=== PATIENT | male | born 1965 | race Caucasian/White ===

== ENCOUNTER 2017-01-01 16:26 | Inpatient (IN) | payer MEDICARE, OTHER ==
[~2017-01-01] VITALS: Ht 177.8 cm; Wt 73.0 kg
[~2017-01-01 16:26] MED LIST: FLUO20CA25 PO; LORA2TAB PO; OXYC10TA8 PO; OXYC30TA80 PO; ROPI3TAB PO; SIMV80TA4 PO; ZOLP10TA5 PO
--- NOTE | 2017-01-01 16:34 | ED.REPORT ---
HPI-Extremity Problem Upper Date of Service Jan 01, 2017 ED Provider: Brady Colbert DO Nursing Notes Stated Complaint: FELL,SHARP PAIN LEFT ARM Allergies: Coded Allergies: No Known Allergies (Unverified , 01/10/16) Scheduled Fluoxetine (Fluoxetine) 20 Mg Capsule 60 MG PO DAILY Ropinirole (Ropinirole) 3 Mg Tablet 6 MG PO HS Simvastatin (Simvastatin) 80 Mg Tablet 40 MG PO DAILY Zolpidem (Zolpidem) 10 Mg Tablet 10 MG PO HS oxyCODONE (oxyCODONE) 30 Mg Tablet 30 MG PO q4 hours Scheduled PRN Lorazepam (Lorazepam) 2 Mg Tablet 2 MG PO TID PRN PRN For Anxiety oxyCODONE (oxyCODONE) 10 Mg Tablet 20 MG PO q4-6hrs PRN PRN For Pain General Time Seen by MD: 16:34 Past Medical History Past Medical History History of back pain Past Surgical History EGD 04/05/04 Smoking History Current Every Day Smoker Social History Alcohol Use: Denies alcohol use Drug Use: Denies drug use Ambulatory Status Independent Discharge & Departure Referrals: Khris Hussein MD (PCP) Brady Colbert DO Jan 01, 2017 16:34
[2017-01-01 16:35] VITALS: BP 136/83; PULSE 99; RESP 20; O2SAT 100
--- NOTE | 2017-01-01 16:48 | ED.REPORT ---
HPI-Extremity Problem Upper Date of Service Jan 01, 2017 ED Provider: Kristi Todd History of Present Illness: 51-year-old male here for left wrist pain. He fell a few days ago landing on his right side and thought the brunt of the impact went onto his right hand and right hip and has been moderately painful but today he was driving in his left wrist started hurting. This pain is severe. Any sort of movement or palpation of the causes great pain. Denies fever, chills, nausea or vomiting. He recently injected drugs into area of pain on L wrist Nursing Notes Stated Complaint: FELL,SHARP PAIN LEFT ARM Chief Complaint: Extremity Trauma Nursing Notes Reviewed: Yes Allergies: Coded Allergies: No Known Allergies (Unverified , 01/10/16) Scheduled Fluoxetine (Fluoxetine) 20 Mg Capsule 60 MG PO DAILY Ropinirole (Ropinirole) 3 Mg Tablet 6 MG PO HS Simvastatin (Simvastatin) 80 Mg Tablet 40 MG PO DAILY Zolpidem (Zolpidem) 10 Mg Tablet 10 MG PO HS oxyCODONE (oxyCODONE) 30 Mg Tablet 30 MG PO q4 hours Scheduled PRN Lorazepam (Lorazepam) 2 Mg Tablet 2 MG PO TID PRN PRN For Anxiety oxyCODONE (oxyCODONE) 10 Mg Tablet 20 MG PO q4-6hrs PRN PRN For Pain General Time Seen by MD: 16:34 Chief Complaint Wrist injury left, Hand injury right Hx Obtained From: Patient Arrived By: Walk-in Onset Occurred: Just prior to arrival Symptom Duration: Constant Location: : Hand right: Wrist left Severity: Current: Severe Severity: Maximum: Severe Associated with: Denies: Fever Pertinent Negative: Pt denies other symptoms Exacerbated by: Range of motion Relieved by: Rest Similar Sx Previous: No Past Medical History Past Medical History Notes: recent iv drug use Past Medical History History of back pain Past Surgical History EGD 04/05/04 Smoking History Current Every Day Smoker Social History Alcohol Use: Denies alcohol use Drug Use: Denies drug use Ambulatory Status Independent Review of Systems Basic Review of Systems Eyes: Vision NL, No discharge ENT: Hearing NL, No pain, No nasal congestion, No pharyngeal pain Respiratory: No shortness of breath, No cough, No wheeze Cardiovascular: No chest pain, No dyspnea on exertion, No orthopnea, No parox noct dyspnea, No palpitations GI: No abdominal pain, No anorexia, No nausea, No vomiting : No dysuria, No frequency Hematologic: No bleeding, No bruising Allergy / Immune: No allergy Psychiatric: Normal thought content Constitutional: Denies: Fatigue Musculoskeletal: Reports: Extremity pain, Extremity swelling Complete sys rev & neg: except as marked. Physical Exam Initial Vital Signs Vital Signs (First) Date Time Temp Pulse Resp B/P Pulse Ox O2 Delivery O2 Flow Rate FiO2 01/01/17 16:35 36.6 99 20 136/83 100 01/01/17 20:43 Room Air Initial VS: Reviewed General/Constitutional: Well-developed, Well-nourished Head / Eyes: Atraumatic, Normocephalic, PERRL Neck: Supple, Non-tender, Full range of motion Respiratory: Breath sounds normal, Clear to auscultation, No respiratory distress Cardiovascular: Regular rate & rhythm, Heart sounds normal, Intact distal pulses Abdomen / GI: Soft, Non-tender, No guarding, No rebound, No distention Skin: Warm, Dry, No cyanosis Neurologic: Alert, Oriented, Nonfocal Psychiatric: Mood/affect normal, Behavior normal, Normal thought content Left Wrist: Positive: ROM reduced, Tender snuffbox..., Tenderness present... ( Severe) Right Hand: Positive: Erythema present, Swelling present... (Moderate), Tenderness present... (Moderate), Warmth present, Negative: ROM reduced multiple abrasians to R hand, some with purulence. R hand swollen. red streak spreading proximally from hand midway up forearm L wrist with a extremely tender area around his anatomical snuffbox. no obvious abscess.no obvious abnormality. just proximal to tender area is a nontender palpable vein. Pain and limitation of supination/pronation, flex/extention Skin: Warm, Dry, Turgor NL Color / Condition: Positive: Erythema localized (r hand/wrist) Rash / Lesion Location: Positive: Hand R, Wrist L Abdomen: Atraumatic, Soft, Non-tender, No guarding, No rebound, No hernia Interpretation & Diagnostics Interpretation & Diagnostics: PROCEDURE: X-RAY RIGHT HAND, MINIMUM THREE VIEWS ([id number]) INDICATIONS: pain TECHNIQUE: 3 views of the hand(s) acquired. COMPARISON: None. FINDINGS: Bones: There is cortical lucency in triquetrum suspicious for fracture. Carpal bones are normally aligned. No suspicious bony lesions. Soft tissues: No suspicious soft tissue calcifications. IMPRESSION: Possible triquetral fracture. Recommend a repeat examination in 7-10 days. of Service: 01/01/17 [id number] PROCEDURE: X-RAY LEFT WRIST COMPLETE, MINIMUM THREE VIEWS ([id number]) INDICATIONS: pain TECHNIQUE: 4 views of the wrist were acquired. COMPARISON: None. FINDINGS: Bones: No definitive fractures or dislocations. There is a linear ridge in the distal radius No suspicious bony lesions. There is ulnar negative variant. Scaphoid view: Scaphoid appears intact. Soft tissues: No suspicious soft tissue calcifications. IMPRESSION: 1. No definite fractures. 2. A linear ridge in the distal radius. If clinical symptoms persist, a repeat examination in 7-10 days, or advanced imaging such as CT or MRI is suggested for further evaluation. 3. Ulnar negative variant. IMPRESSION: 1. Severely limited examination due to motion artifacts. 2. Diffuse soft tissue swelli Lab Results Interpretation Result Diagram: 01/01/17 1710 01/01/17 1710 Test 01/01/17 17:10 White Blood Count 15.5th/mm3 (3.8-10.1) Red Blood Count 3.90mil/mm3 (4.40-5.80) Hemoglobin 10.9g/dL (13.8-17.2) Hematocrit 35.4% (41.0-50.0) Mean Corpuscular Volume 90.8fL (81-100) Mean Corpuscular Hemoglobin 27.9pg (27.0-35.0) Mean Corpuscular Hemoglobin Concent 30.8% (32.0-37.0) Red Cell Distribution Width 15.0% (12.3-15.4) Platelet Count 329bil/L (150-400) Neutrophils (%) (Auto) 76.5% (40-74) Lymphocytes (%) (Auto) 12.6% (14-46) Monocytes (%) (Auto) 9.6% (4-12) Eosinophils (%) (Auto) 1.0% (0-5) Basophils (%) (Auto) 0.1% (0-3) Erythrocyte Sedimentation Rate 23mm/hr (0-30) Sodium Level 134mEq/L (134-144) Potassium Level 4.8mEq/L (3.5-5.2) Chloride Level 97mEq/L (97-108) Carbon Dioxide Level 22mmol/L (18-29) Blood Urea Nitrogen 26mg/dL (6-24) Creatinine 0.88mg/dL (0.76-1.27) Estimat Glomerular Filtration Rate 96mL/min (>59) Glucose Level 111mg/dL (60-99) Lactic Acid Level 0.7mmol/L (0.4-2.0) Calcium Level 9.1mg/dL (8.5-10.1) Magnesium Level 2.1mg/dL (1.6-2.6) Total Bilirubin 0.2mg/dL (0.0-1.2) Aspartate Amino Transf (AST/SGOT) 15U/L (0-50) Alanine Aminotransferase (ALT/SGPT) 11U/L (0-44) Alkaline Phosphatase 96U/L (25-150) C-Reactive Protein 1.6mg/dL (0.0-0.5) Total Protein 7.0g/dL (6.4-8.4) Albumin 3.5g/dL (3.4-5.0) Re-Eval/Medical Decision Med Decision/Clinical Course Patient still has exquisite pain in the ulnar aspect of his left wrist pain with even the lightest touch and with any sort of movement. CT scan ordered Dr murdock at bedside for exam, care transfered. will admit pt. discussed admission with pt, he agrees to stay. Discharge & Departure Shift Change Sign-Out Laboratory Evaluation: Lab evaluation discussed Imaging Studies: Imaging discussed Procedures: Results discussed Impression: Primary Impression: Joint infection of left wrist Disposition: ADMITTED TO HOSPITAL Referrals: Khris Hussein MD (PCP) EDSupervising Provider for APC: Ace Murdock MD copies to: Ace Murdock MD, Linnea K ARNP Jan 01, 2017 16:48
--- NOTE | 2017-01-01 17:18 | DRSVH ---
PROCEDURE: X-RAY RIGHT HAND, MINIMUM THREE VIEWS ([id number]) INDICATIONS: pain TECHNIQUE: 3 views of the hand(s) acquired. COMPARISON: None. FINDINGS: Bones: There is cortical lucency in triquetrum suspicious for fracture. Carpal bones are normally al igned. No suspicious bony lesions. Soft tissues: No suspicious soft tissue calcifications. IMPRESSION: Possible triquetral fracture. Recommend a repeat examination in 7-10 days. Dictated by: Chandana Munoz M.D. on 01/01/2017 at 17:14 Approved by: Chandana Munoz M.D. on 01/01/2017 at 17:16
[2017-01-01] MEDS ORDERED: 0.9% Sodium Chloride 1,000 ML IV ONE (17:20)
--- NOTE | 2017-01-01 17:22 | DRSVH ---
PROCEDURE: X-RAY LEFT WRIST COMPLETE, MINIMUM THREE VIEWS ([id number]) INDICATIONS: pain TECHNIQUE: 4 views of the wrist were acquired. COMPARISON: None. FINDINGS: Bones: No definitive fractures or dislocations. There is a linear ridge in the distal radius No leena picious bony lesions. There is ulnar negative variant. Scaphoid view: Scaphoid appears intact. Soft tissues: No suspicious soft tissue calcifications. IMPRESSION: 1. No definite fractures. 2. A linear ridge in the distal radius. If clinical symptoms persist, a repeat examination in 7-10 da ys, or advanced imaging such as CT or MRI is suggested for further evaluation. 3. Ulnar negative variant. Dictated by: Chandana Munoz M.D. on 01/01/2017 at 17:18 Approved by: Chandana Munoz M.D. on 01/01/2017 at 17:20
[2017-01-01 17:23] LABS: BASOPHILS % (AUTO) 0.1 % (0-3); MONOCYTES % (AUTO) 9.6 % (4-12); Mean Corpuscular Hemoglobin 27.9 pg (27.0-35.0); Mean Corpuscular Volume 90.8 fL (81-100); NEUTROPHILS % (AUTO) 76.5 % (40-74); Platelet Count 329 bil/L (150-400)
[2017-01-01 17:50] LABS: Magnesium 2.1 mg/dL (1.6-2.6)
--- NOTE | 2017-01-01 20:26 | DRSVH ---
PROCEDURE: CT WRIST LEFT WITH CONTRAST ([id number]) INDICATIONS: Right hand pain. TECHNIQUE: After the administration of intravenous contrast, 3 mm axial sections acquired of the right hand, wit h coronal and sagittal reformats. For radiation dose reduction, the following was used: automated e xposure control, adjustment of mA and/or kV according to patient size. COMPARISON: [facility], CR, XR WRIST 3VW LT, 01/01/2017, 16:47. FINDINGS: Image quality: Severely limited examination due to motion artifacts. Bones: Cannot rule out subtle fractures because of motion artifacts. Soft tissues: Diffuse soft tissue swelling. IMPRESSION: 1. Severely limited examination due to motion artifacts. 2. Diffuse soft tissue swelling. Dictated by: Chandana Munoz M.D. on 01/01/2017 at 20:20 Approved by: Chandana Munoz M.D. on 01/01/2017 at 20:24
[2017-01-01 20:43] VITALS: BP 134/96; PULSE 62; RESP 16; O2SAT 98
[2017-01-01] MEDS ORDERED: Piperacillin-Tazo 3.375 Gm Inj 3.375 GM in Dextrose 5% Minibag Plus 50 ML IV ONE (20:55)
[2017-01-01] MEDS ORDERED: Vancomycin Dose per Pharmacist XX ONE (20:55)
[2017-01-01] MEDS ORDERED: Vancomycin Inj 1,500 MG in 0.9% Sodium Chloride 500 ML IV ONE (21:00)
[2017-01-01] MEDS ORDERED: Alum-Mag Hydrox-Simeth 30 mL Suspension PO PRN (21:45)
[2017-01-01] MEDS ORDERED: Polyethylene Glycol (PEG) 17 Gm Powder PO PRN (21:45)
[2017-01-01] MEDS ORDERED: Ondansetron 2 mg/mL 2 mL Inj IVPUSH PRN (21:45)
--- NOTE | 2017-01-01 21:58 | PCM.HPMED ---
Subjective Date of Service Jan 01, 2017 Primary Provider: Admitting Physician: Evan Reynaga MD Primary Care Physician: Khris Hussein MD Attending Physician: Evan Reynaga MD Admit Status: From the Emergency Department Chief Complaint: Left wrist pain History of Present Illness: Mr. Fitzgerald is a 51 year old gentleman with history of heroin IVDU and recent GLF, that presented to [facility] with acute onset of left wrist pain. He was admitted for evaluation and treatment of suspected left wrist infection secondary to recent IVDU. Hospital day one. Mr. Fitzgerald states that his left wrist became painful earlier in the day of admission, 01/01/2017, while he was driving. He states that he noted the increase in pain while he was driving his vehicle, and he attributed it to compensation for his right wrist injury that occurred approximately two days prior. His left wrist is notably tender, but non-erythematous, with pain elicited during wrist extension, abduction, and adduction; not much pain with flexion. He admits to most recent IVDU injection day of admission, and notes to inject around area of concern. He states that he has had a particularly difficult time since the passing of his months ago. He denies any associated fever, chills, nausea, vomiting, decreased appetite, diarrhea, constipation, abdominal pain, or pain of any other joints other than the phalangeal joints of his right hand secondary to a GLF approx two days ago. He states that he does not recall many details of this fall, and cannot clearly state the inciting factors. He cannot conclude if he blacked out, was dizzy and fainted, or any details. He vaguely remembers pulling himself up off the floor. He denies any pain of his bilateral hips, shoulders, elbows; denies pain of his right wrist. In the ED, vitals stable with temp 36.6, P62, BP 134/96, 98% RA; initial labs revealed WBC 15.5 with 76.5 neut, ESR 23, CRP 1.6; blood cultures obtained. Imaging included left wrist XR that revealed a linear ridge in distal radius; right hand XR revealed possible triquetral fracture; left wrist CT revealed soft tissue swelling, but was limited to motion artifact. CT brain was ordered to evaluate for stroke secondary to reports of recent GLF without known inciting factor, ordered at time of admission, and final report not yet completed. Initial therapy included vancomycin and zosyn. Review of Systems: Complete ROS obtained; pertinent positives and negatives as noted in HPI. Allergies Coded Allergies: No Known Allergies (Unverified , 01/10/16) Home Medications Patient reports no medications are taken on a daily basis; last seen by PCP > 1 year ago Patient reports distant history of cholesterol medications PMH Current IVDU, heroin Recent GLF secondary to unknown causes at time of admission Chronic back pain Reports history of elevated cholesterol Reports depression since loss of Possible HCV; distant [facility] notes from 2004 indicate a liver Bx was performed for HCV Denies any history of previous septic joints, painful joints, or history of similar events Surgical History Denies any surgical procedures Chart review: EGD 2003 Family History Denied any family history of similar; does not report any known details Social History Hx Alcohol Use: No Hx Substance Use: Yes (IV heroin; last used day of admission) Smoking Status: Current Every Day Smoker (Reports: 1ppd) Living Arrangement: Alone (Reports he lives in his home in [facility]) Exam Vital Signs Vital Sign - Last Date Time Temp Pulse Resp B/P Pulse Ox O2 Delivery O2 Flow Rate FiO2 01/01/17 20:43 62 16 134/96 98 Room Air 01/01/17 16:35 36.6 Exam General: AAOx3; no acute distress; frail, appears older than stated age HEENT: Atraumatic, sclera anicteric, EOMI, external ears without defect; mucus membranes moist Neck: Soft, no palpable lymph nodes; full ROM without pain Cardiac: RRR, no appreciated murmurs Respiratory: Adequate air flow all holm, no coarse sounds appreciated Abdomen: Soft, nontender, nondistended Extremities: Bilateral lower extremities without swelling of joints or impairments in ROM; left wrist non-erythematous, tender to palpation and with extension/abduction/adduction at wrist; right wrist noted to be mildly swollen with multiple sites of puncture/abrasion over right phalanges MSK: Able to ambulate and transfer without assistance Neuro: CNII-XII grossly intact; speech without slur; facial expressions equal and symmetric Psych: Appropriate mood, affect, and responses to questioning; minimal insight and judgment based on history of IVDU Patient was noted to become upset and tearful when speaking about how his IVDU has developed since the loss of his Lab and Diagnostics Result Diagram: 01/01/17 17101/01/17 171 Assessment & Plan Mr. Fitzgerald is a 51 year old gentleman with history of heroin IVDU and recent GLF, that presented to [facility] with acute onset of left wrist pain. He was admitted for evaluation and treatment of suspected left wrist infection secondary to recent IVDU. Hospital day one. Left wrist pain, acute, present on admission. Ongoing - Patient reports recent compensation for R sided injury and recent IVDU around site - L wrist XR: Linear ridge of distal L radius - L wrist CT: Motion artifact; soft tissue swelling - DDx: Ligamentous/tendinous injury, septic joint, gout - LRINEC score: 3 based on labs at admission; low risk, but not zero risk - Uric acid - ASO titer - Blood cultures - MRSA swab - Abx: Vanco, ceftriaxone - ED has contacted ortho; ortho kindly agrees to FU in am - Ortho consult order placed - MR left wrist ordered Right wrist pain, acute, present on admission. Under evaluation - Pt reports recent GLF - XR R hand: Cortical lucency in triquetrum suspicious for fracture - Await ortho recs; appreciated Recent GLF, acute, not present on admission. Under evaluation - CT brain ordered by ED to r/o CVA - DDx: CVA, dysrhythmia, AMS secondary to infection, instability secondary to effects of IVDU - Thyroid panel, tele, daily labs - Await CT result; no current s/sx or findings of neuro deficit Dysuria and difficulty urinating, acute, present on admission. Under evaluation - Pt reported pain with urination and difficulty over recent days; no history of prostate issues - DDx: UTI, BPH, dehydration - UA with Cx if indicated - Monitor History of IVDU, chronic. Ongoing - Patient reports IV heroin use approx one year since April 2015 - Social work referral for resources - HIV testing in am - Monitor for s/sx withdrawal - Ativan 1mg TID prn; likely need to adjust as care progresses History of HCV. Chronic, status unknown - Viral load, genotype ordered Tobacco use disorder, chronic - Pt reports 1ppd - 21mg nicotine patch scheduled - PRN: bowel/fever/pain/antiemetics - DVT: SCDs only until head CT results - GI: H2B - Diet: General - IVF: None; patient tolerating po well - Code: FULL CODE Patient status: Due to severity of presenting symptoms, risk of adverse events, and likely course of care, anticipated LOS > 2 midnights; admitted as INPT status. Pain Evaluation: Adequate Pain Control GI Prophylaxis: H2 parveen VTE Prophylaxis: SCDs Resuscitation Status: CPR: Attempt Resuscitation Attending Statement The patient was seen and examined together with Dr. Velasquez on 01/01 and I agree with the history, exam and plan as outlined in the note above. Selin Velasquez DO Jan 01, 2017 21:58 Evan Reynaga MD Jan 01, 2017 23:50
[2017-01-01 22:12] VITALS: BP 134/96; PULSE 62; RESP 16; O2SAT 98
--- NOTE | 2017-01-01 23:14 | NUR ---
Arrival t0n Addendum: 01/01/17 at 2319 by RUFINO GONZALEZ RN Arrival to room 1021 Patient arrived to room 1021 at 2219 walking from the ED accompanied by BEN Beckwith. Patient stated that he was cold and requested 3 warm blankets. Patient mumbled answers to assessment questions and in the middle of assessment, patient fell asleep and I was not able to wake patient to complete assessment. Vancomycin IV started.
[2017-01-01] MEDS ORDERED: oxyCODONE-Acetamin 5-325 mg Tablet PO PRN (23:15)
[2017-01-01 23:25] VITALS: BP 152/92; PULSE 86; RESP 18; O2SAT 99
[2017-01-01 23:30] VITALS: PULSE 86
[2017-01-02] MEDS: LORazepam 1 mg Tablet PO PRN ×2 (00:53→20:07)
--- NOTE | 2017-01-02 03:33 | PCM.CONPHA ---
Subjective Date of Service: Jan 02, 2017 Requesting Provider: Selin Velasquez DO Left wrist pain History of Present Illness septic joint of left wrist Reason for Pharmacy Consult: Vancomycin Dosing Objective Vital Signs Date Time Temp Pulse Resp B/P Pulse Ox O2 Delivery O2 Flow Rate FiO2 01/01/17 23:30 86 01/01/17 23:25 37.1 86 18 152/92 99 01/01/17 22:12 36.6 62 16 134/96 98 Room Air 01/01/17 20:43 62 16 134/96 98 Room Air 01/01/17 16:35 36.6 99 20 136/83 100 Intake and Output 12/31/16 01/01/17 01/02/17 00:00 00:00 00:00 Intake Total 999 ml Balance 999 ml Weight (Kilograms): 73.000 Height (Feet): 5 Height (Inches): 10.00 Test 01/01/17 17:10 White Blood Count 15.5th/mm3 (3.8-10.1) Red Blood Count 3.90mil/mm3 (4.40-5.80) Hemoglobin 10.9g/dL (13.8-17.2) Hematocrit 35.4% (41.0-50.0) Mean Corpuscular Volume 90.8fL (81-100) Mean Corpuscular Hemoglobin 27.9pg (27.0-35.0) Mean Corpuscular Hemoglobin Concent 30.8% (32.0-37.0) Red Cell Distribution Width 15.0% (12.3-15.4) Platelet Count 329bil/L (150-400) Neutrophils (%) (Auto) 76.5% (40-74) Lymphocytes (%) (Auto) 12.6% (14-46) Monocytes (%) (Auto) 9.6% (4-12) Eosinophils (%) (Auto) 1.0% (0-5) Basophils (%) (Auto) 0.1% (0-3) Erythrocyte Sedimentation Rate 23mm/hr (0-30) Sodium Level 134mEq/L (134-144) Potassium Level 4.8mEq/L (3.5-5.2) Chloride Level 97mEq/L (97-108) Carbon Dioxide Level 22mmol/L (18-29) Blood Urea Nitrogen 26mg/dL (6-24) Creatinine 0.88mg/dL (0.76-1.27) Estimat Glomerular Filtration Rate 96mL/min (>59) Glucose Level 111mg/dL (60-99) Lactic Acid Level 0.7mmol/L (0.4-2.0) Uric Acid 4.2mg/dL (2.6-7.2) Calcium Level 9.1mg/dL (8.5-10.1) Magnesium Level 2.1mg/dL (1.6-2.6) Total Bilirubin 0.2mg/dL (0.0-1.2) Aspartate Amino Transf (AST/SGOT) 15U/L (0-50) Alanine Aminotransferase (ALT/SGPT) 11U/L (0-44) Alkaline Phosphatase 96U/L (25-150) C-Reactive Protein 1.6mg/dL (0.0-0.5) Total Protein 7.0g/dL (6.4-8.4) Albumin 3.5g/dL (3.4-5.0) Assessment/Plan Assessment/Plan A/ - 51 y/o male admitted in hospital late 01/01 required Vancomycin therapy to empirically cover for septic joint of left wrist. He is active IVDU, has hx of HCV - Afebrile, WBC: 15.5, blood cultures (x2) and MRSA screen: pending - In ED, he received one time dose of Rocephin and Vancomycin 1.5g @2335 and both to continue - Wt: 73 kg, ht: 177.8 cm, Scr: 0.88 mg/dL, estimated clearance ~ 100 ml/min , BMI: 23 kg/m2, Vd: 51L, t1/2 ~8hrs - Target trough: 15-20 P/ - Give Vancomycin 1250mg iv q12h. Trough level ordered before 3rd dose @ 2230 01/02. Note that patient is IVDU, trough might come back low than estimated. Pharmacy will continue to follow and make necessary adjustment Thank you for consulting clinical pharmacy in the care of this patient Angel Rodriguez, ToniaD, [facility] Ryan Rodriguez Jan 02, 2017 03:33
--- NOTE | 2017-01-02 03:44 | NUR ---
Withdrawal Symptoms Patient has had episodes of extreme restlessness and agitation. Patient has been found upside down in bed on several occasions with screaming and pulling on IV and continuous pulse ox cord. Dr. Kenney ordered 2 mg Ativan IVP and it was administered. Patient continued to turn upside down in bed along with walking in hallway. ordered Soma bed. Patient restrained in bed, however, continues to exhibit extreme withdrawal symptoms. Will monitor patient closely.
--- NOTE | 2017-01-02 04:52 | NUR ---
Re-Assessment Because of patients withdrawal symptoms and because patient being restrained in soma bed, patient refused care after 0200.
[2017-01-02 06:14] LABS: BASOPHILS % (AUTO) 0.1 % (0-3); EOSINOPHILS % (AUTO) 0.2 % (0-5); MONOCYTES % (AUTO) 11.8 % (4-12); Mean Corpuscular Volume 91.3 fL (81-100); NEUTROPHILS % (AUTO) 79.5 % (40-74); Platelet Count 312 bil/L (150-400)
[2017-01-02 06:51] LABS: Magnesium 2.2 mg/dL (1.6-2.6); Phosphorus 2.8 mg/dL (2.5-4.9)
--- NOTE | 2017-01-02 07:20 | DRSVH ---
PROCEDURE: CT BRAIN WITHOUT CONTRAST ([id number]) INDICATIONS: Prolonged RLE Weakness (2 weaks ago) TECHNIQUE: Noncontrast 4.5 mm thick angled axial sections acquired from the foramen magnum to the vertex, with c oronal reformats. COMPARISON: None. FINDINGS: Image quality: Excellent. CSF spaces: Basal cisterns are patent. No extra-axial fluid collections. Ventricles are normal in size and shape. Brain: No midline shift. No intracranial masses or hemorrhage. Rios-white matter interface is norm al. Except the left temporal tip there is an area of encephalomalacia. Skull and face: Calvarium and visualized facial bones are intact, without suspicious lesions. Sinuses: Visualized sinuses and mastoids show previous ethmoidectomies bilaterally and probable muco penny thickening of the right maxillary sinus. IMPRESSION: Acute abnormality is not identified. Left temporal tip encephalomalacia. Sinus disease as described. Dictated by: Los Ennis M.D. on 01/02/2017 at 7:16 Approved by: Los Ennis M.D. on 01/02/2017 at 7:18 this report corresponds to the findings of th e preliminary NSR report.
[2017-01-02] MEDS ORDERED: Haloperidol 5 mg/mL Inj IVPUSH ONE ×2 (07:55→22:25)
--- NOTE | 2017-01-02 08:02 | PCM.PNMED ---
Subjective Date of Service Jan 02, 2017 Subjective Follow up for soft tissue infection, IVD abuse , acute encephalopathy Patient seen and examined at bedside . He is quite agitated , on acute delirium and non cooperative Unable to interview and to complete adequate physical exam at this time . Exam Vital Signs Vital Sign - Last Date Time Temp Pulse Resp B/P Pulse Ox O2 Delivery O2 Flow Rate FiO2 01/01/17 23:30 86 01/01/17 23:25 37.1 18 152/92 99 01/01/17 22:12 Room Air Intake and Output 01/01/17 01/01/17 01/02/17 Cumulative From/Thru 15:00 23:00 07:00 01/01/17 16:35 - 01/02/17 06:38 Intake Total 999 ml 975 ml 1974 ml Balance 999 ml 975 ml 1974 ml Intake Oral 450 ml 450 ml IV Total 999 ml 525 ml 1524 ml # Voids 2 2 Exam General/conditional: agitated, on soft restraint, Neck: Supple, no JVD, no carotid bruit, trachea is midline x-ray Chest: No chest wall tenderness, normal respiratory effort. Heart: S1, S2 regular rate and rhythm no gallop, no murmur. Lung: Clear bilaterally to auscultation, no crackles, no wheezing Abdomen: Benign Extremity: No cyanosis, no edema, tenderness Skin: No rash, no ulcers Neuro : Agitated . Patient moves all extremities IVs and Medications Medications Reviewed: Medications were reviewed in detail Lab and Diagnostics Result Diagram: 01/02/17 0545 01/02/1745 X-Rays, CTs and MRIs Wrist Ct scan reviewed : 1. Severely limited examination due to motion artifacts. 2. Diffuse soft tissue swelling. Head CT scan reviewed : Acute abnormality is not identified. Left temporal tip encephalomalacia. Sinus disease as described. Assessment & Plan Mr. Fitzgerald is a 51 year old gentleman with history of heroin IVDU and recent GLF, that presented to [facility] with acute onset of left wrist pain. He was admitted for evaluation and treatment of suspected left wrist infection secondary to recent IVDU. Hospital day one. 1. Left wrist pain, acute, present on admission. Ongoing Jonn is at the site of IVD injection . CT scan show soft tissue swelling, likely infection. WBC is 22.K - Continue Zosyn. Blood culture in process -- Ortho consult is pending 2. Acute encephalopathy : Metabolic/chemical due to IVDA Patiet is agitated with acute delirium and on restraint . Ativan given earlier did not make any difference and seem to be having paradoxical effect. Will try Haldol and see how that works. I doubt Opiates withdrawal . He is on Morphine and home oxycodone 3. Ground Level Fall : Likely due to drug intoxication - CT brain ordered by ED to r/o CVA 4 . History of IVDU, chronic. Ongoing - Patient reports IV heroin use approx one year since April 2015 - Social work referral for resources - HIV testing pending . Patient is known to have hepatitis C 5. Tobacco use disorder, chronic - Pt reports 1ppd - 21mg nicotine patch scheduled This is a very sick patient with acute delirium , soft tissue infection and possibly heroin withdrawal . He is quite agitated and restrained to prevent self injury . COntinue morphine IV to minimized risk kathy opiate withdrawal . Haldol PRN IM for agitation. Consider adding clonidine . GI Prophylaxis: H2 parveen VTE Prophylaxis: SCDs Resuscitation Status: CPR: Attempt Resuscitation Time spent 35 minutes Zachary Knight MD Jan 02, 2017 08:02
[2017-01-02 08:06] VITALS: BP 129/84; PULSE 103; RESP 22; O2SAT 98
--- NOTE | 2017-01-02 08:25 | CONS ---
[address] [address] CONSULTATION REPORT PATIENT: ENIO ORTIZ : 1965 MR#: [id number] ADMIT: 01/01/2017 JOB ID: [id number] DATE OF SERVICE: 01/02/2017 CHIEF COMPLAINT: Left wrist pain and swelling. HISTORY OF PRESENT ILLNESS: The patient is a 51-year-old male that presented to [facility] emergency department yesterday evening for left wrist pain. The majority of the patient's history has been obtained from the medical chart, as the patient had significant deterioration overnight, likely from presumed withdrawal from heroin utilization, and is really noncommunicative this morning. He is naked in bed, mumbling and making incoherent gestures. Nursing states that this happened acutely overnight, and the hospitalist is aware. The patient presented to the hospital yesterday evening, stating that he had increased pain while driving his vehicle. Majority of the pain is elicited with any motion to the wrist, but especially with extension. He states that he recently had IV drug utilization and injected around the dorsal radial aspect of the hand. He denies any constitutional symptoms including any fever, sweats or chills. His only other complaint is of some mild right hand pain, as he states he had a ground level fall two days ago and has pain to the fingers, but denies any pain to the right wrist. PAST MEDICAL HISTORY: Hyperlipidemia. Depression. Hepatitis C. PAST SURGICAL HISTORY: Negative. FAMILY HISTORY: Noncontributory. SOCIAL HISTORY: The patient denies any alcohol utilization. He is a current IV drug user. He has been fighting depression since the loss of his . MEDICATIONS: None. ALLERGIES: No known drug allergies. REVIEW OF SYSTEMS: Unable to be performed secondary to the patient's current mentation. PHYSICAL EXAMINATION: General: The patient is mumbling and making incoherence sounds, as well as gestures. He is unable to participate with the examination. Extremities: Gross observation of the patient's left hand, there is very mild erythema to the dorsal radial aspect of the hand overlying the proximal aspect of the 1st web space. There is no palpable fluctuance. There is tenderness overlying this area. The patient is able to be witnessed to mobilize the fingers fully, including full extension and full composite fist, and tends to hold the wrist in flexion. The wrist passively can be moved into extended position which does elicit pain and discomfort. There is no palpable effusion. The patient's right hand demonstrates some multiple excoriations to the dorsal aspect of the hand overlying the metacarpal heads as well as the phalanges. No palpable fluctuance or active drainage. Mild surrounding erythema to the areas of excoriation. Both hands are well perfused, with brisk capillary refill. Palpable distal radial and ulnar pulses. DIAGNOSTIC STUDIES: Labs obtained at admission demonstrate an elevated white count of 15.5, an ESR of 23, CRP is elevated at 1.6. Today, the white count is further elevated to 22.5. Four views of the left wrist was obtained on January 01, 2017, demonstrates no acute fractures or dislocations. CT of the left wrist was also obtained and demonstrates significant motion artifact. No acute fractures or dislocations are appreciated. Three views of the right hand was also obtained on January 01, 2017, demonstrate questionable triquetral body fracture. IMPRESSION: Bilateral hand cellulitis. PLAN: The patient does not demonstrate any signs of having an underlying abscess or a septic wrist. My recommendation at this time is for the patient to be on IV antibiotics. We will continue to observe. If his symptoms worsen, recommendation would be for an MRI of the left wrist, and possibly proceeding with an incision and drainage, but again, currently at this time, I do not see any signs that would warrant any surgical intervention.
[2017-01-02] MEDS: Vancomycin Dose per Pharmacist XX SCH (08:30)
[2017-01-02] MEDS ORDERED: cefTRIAXone Inj 2,000 MG in Dextrose 5% Minibag Plus 50 ML IV SCH (08:30)
[2017-01-02] MEDS ORDERED: Haloperidol 5 mg/mL Inj IM ONE ×2 (09:10→18:05)
[2017-01-02] MEDS ORDERED: Vancomycin Inj 1,250 MG in 0.9% Sodium Chloride 250 ML IV SCH (11:00)
[2017-01-02 11:48] VITALS: PULSE 94
[2017-01-02] MEDS ORDERED: Haloperidol 5 mg/mL Inj IM PRN (12:25)
[2017-01-02] MEDS: Haloperidol 5 mg/mL Inj IV PRN ×4 (12:33→20:07)
--- NOTE | 2017-01-02 13:27 | ABG ---
DateTimeAnalyzed 13:22:48 -_ pH ____7.487 - 7.350 7.450 pCO2 ___34.3__ -mmHg 35.0 45.0 pO2 ___89.2__ -mmHg 70.0 100 HCO3- ___26.0__ -mmol/L 22.0 26.0 ABE ____2.4__ -mmol/L -2.0 2.0 tHb ___11.1__ -g/dL 12.0 18.0 O2Hb ___96.7__ -% 95.0 COHb ____2.1__ -% 1.5 MetHb ___-0.1__ -% 0.4 1.5 sO2 ___98.7__ -% 25.0 FIO2 ___21.0__ -% Drawn By btl - Date/Time Notified____ 13:27:00 -_ Notified By Btl - Notified Whom ___Dr. Rochelin - B 751 -mmHg K+ ____3.7__ -mmol/L tO2 ___15.3__ -Vol% Devaughn test N/A -
[2017-01-02 13:55] LABS: APPEARANCE,URINE HAZY (CLEAR,HAZY); COLOR,URINE STRAW (YELLOW); OCCULT BLOOD,URINE TRACE (NEGATIVE); PH,URINE 7.5 (5.0-8.0); UROBILINOGEN,URINE NORMAL (NORMAL)
--- NOTE | 2017-01-02 15:42 | NUR ---
Social Work-attempted assessment: Data&assessment:Pt is a 51 y/o male who was admitted on 01/01/17 for septic joint left wrist per H&P. Pt's insurance is [facility] and PCP is Khris Hussein MD. EMR Reviewed. At beginning of shift pt in [facility] bed. Pt is now in 4 point restraints. Pt is not appropriate for an assessment at this time. Pt has history of IV drug use. SW to follow up when appropriate. SW will continue to follow. Plan;SW to follow up with assessment when appropriate.SW will continue to follow. DARINEL Joe
[2017-01-02] MEDS: Cefepime Inj 2,000 MG in Dextrose 5% Minibag Plus 100 ML IV SCH (18:46)
--- NOTE | 2017-01-02 19:43 | NUR ---
mentation pt. in [facility] bed this am; incontinent of urine; unable to keep tele or iv in place; disoriented, mumbling, constantly moving; pt. having very brief episodes of clarity where pt. is A&Ox3, answering questions appropriately and cooperative for about 30 seconds-few minutes. [facility] bed dc'd; pt. placed in hospital bed with 4 point restraints. Able to place IV and tele. Pt. continued to be impulsive, constantly moving, twitching, pulling and grabbing at anything close with episodes of clarity. MD aware; receiving PRN haldol iv with min relief, pt. continued to twitch and move constantly; receiving scheduled morphine and clonidine patch in place. 2L NC sats high 90's; tele sinus/sinus tach 90-low 100's. Passed on report to receiving RN to continue to monitor.
[2017-01-02 20:29] VITALS: BP 140/82; PULSE 92; RESP 20; O2SAT 97
[2017-01-02 20:40] VITALS: BP 160/61; PULSE 50; RESP 18; O2SAT 95
[2017-01-02 21:11] VITALS: PULSE 108
--- NOTE | 2017-01-02 23:36 | CONS ---
[address] [address] CONSULTATION REPORT PATIENT: ENIO ORTZI : 1965 MR#: [id number] ADMIT: 01/01/2017 JOB ID: [id number] DATE OF SERVICE: 01/02/2017 REASON FOR CONSULTATION: Left hand cellulitis. Rule out septic joint. I thank Dr. Knight for this timely consult. HISTORY OF PRESENT ILLNESS: The patient is a 51-year-old gentleman with a history of IV heroin use. He recently had a ground level fall and came to [facility] complaining of left wrist pain and possible infection. He states that his wrist became painful yesterday while he was driving his car. He said a couple of days before he had suffered a fall and his wrist had been tender without much swelling and over the 48 hours or so after the fall, his wrist had become much more progressively painful. He states he had been injecting heroin right along into the area very near the area of pain on his right radial wrist. He states he had been injecting more heroin lately since his a few months ago. He did not have associated fevers, chills or sweats and had no localizing pain or symptoms except around his left wrist and he had some scraped dorsal fingers on the right hand also due to the fall which were not so problematic. He is unsure of the exact precipitance of his fall back on December 30. Following his admission, given the above-mentioned history, the patient has developed today this very weird sequence of behaviors. The patient is actively thrashing in the bed and incoherent at times and has required four-point restraints. During these times, the patient is completely noncommunicative and grunts or moans as he thrashes in bed against his restraints. He then will stop and, according to the nurse, will appear to be completely lucid, follow commands and answer questions only to start back into the jerking random movements and pulling against his restraints. When I 1st went in to interview the patient, he was not answering any questions and was simply thrashing about in four point restraints. After a few minutes of questions, however, he started to answer some, but not all, of my questions. He stated he was from [place] and he was aware of the year as well as some current events. He stated he did not have a headache or stiff neck and that he could not understand why he was all tied up. Seconds later, however, the patient was once again thrashing around, noncommunicative and requiring the four point restraints that are still attached. This bizarre pattern of purposeless random activity followed by periods of lucidity has apparently been going on all day. With respect to the reason I am asked to see him, the patient notes he has pain in and around his left wrist which is quite severe. This has been evaluated earlier by the hand surgeon and I do not think he had a septic joint but rather some degree of bilateral hand cellulitis related to his fall a couple days ago. During the periods where the patient is a little bit more calm and lucid, he denies fevers or chills. He says he has no stiff neck or headache. I could not get him to answer much else in the way of questions and he did not answer any questions about pulmonary or GI symptoms. The nurses note he has been incontinent of urine at times but, more recently, was able to signal when he wanted to urinate and get on the commode. PAST MEDICAL HISTORY: 1. IV heroin use. 2. Ground level fall December 30 with minor trauma to both hands. 3. Chronic back pain. 4. Hyperlipidemia. 5. Hepatitis C. SOCIAL HISTORY: The patient reports his a few months ago, and since then he has been using more heroin. I could not get an answer to any of the questions, although he did say that he does not drink alcohol. Notes in the chart say he is an every day smoker. FAMILY HISTORY: Not obtainable at this point, as the patient is only intermittently answering questions and is wildly disoriented during the rest of the time, and I really cannot get that much history. REVIEW OF SYSTEMS: Was limited by the patient's bizarre intercurrent behaviors. The patient says he has no headache or stiff neck. I could not get him to answer questions about his eyes or throat, swallowing or pulmonary, GI or symptoms or anything else. PHYSICAL EXAMINATION: Reveals a gentleman who briefly calms down and will answer questions, but most of the time is simply thrashing about against his restraints and appears completely out of control. This is not seizure activity per se as it does seem to be sporadic but purposeful in that he seems to be mainly pulling at the restraints. During these periods, however, he is noncommunicative and this seems to comprise most of the time during the stay. The patient has been afebrile since admission. Yesterday, his current temp was 37.6, pulse 94, respiratory rate 22, blood pressure 129/84. He is saturating 98% on room air. Examination of the head reveals no obvious trauma. No temporal wasting. Eyes without conjunctival or scleral abnormalities. Nose is normal. Oral cavity: No thrush or hairy leukoplakia seen but it is very difficult to examine the patient as he will not keep his mouth open. His teeth appear intact. At one point he briefly calmed down, and I was able to verify with certainty that he has a completely supple neck. He has no cervical adenopathy and no JVD. His lungs are reasonably clear bilaterally. Cardiac tones: Regular rate and rhythm without murmur. Abdomen is soft, nontender, no ascites, no hepatosplenomegaly. He is wearing a diaper. There is no suprapubic fullness and no Zavala catheter. He does not have any swollen inguinal lymph nodes. His lower extremities are without edema, cellulitis or joint inflammation. His left wrist is tender along the radial aspect at the thenar eminence. There is some erythema there. Notably, he has full range of motion of his wrist without any restriction of motion or tenderness, and I do not think there is any way he has a left septic joint on the wrist anyway. His right hand shows abrasions across some of the posterior distal dorsal fingers, but these areas appear uninfected and are very shallow wounds. His right wrist is completely normal. There is no evidence of synovitis anywhere. Neurologically, the patient vigorously moves everything. He does not appear to be having a seizure. LABORATORIES: Include white count 15.5 on admission, now 225. His platelet count 312, mild left shift. Sed rate 23, creatinine 0.87. LFTs are normal. Procalcitonin 0.08. Tox screen positive for opiates and amphetamines. Urine without white cells. Hep C and HIV are pending. Streptozyme is pending. Blood cultures from yesterday evening are negative. IMAGING: Includes a brain CT which shows that the tip of the left temporal lobe has encephalomalacia. The duration of that is unknown. A wrist CT did not show evidence of bony involvement, it was poor quality due to motion and there was diffuse soft tissue swelling about the left wrist. A basic hand x-ray showed a possible triquetral fracture with recommendations to re-examine. IMPRESSION: This is a "very strange case" of an IV drug user who fell a couple of days ago and then had pain in his left wrist while driving his car. This eventually led him to the ED and eventual admission. There were concerns about a left wrist septic joint, and I do not think based on my exam that that is a possibility. It does appear he likely has some cellulitis in the right radial hand secondary to his fall and perhaps along the distal dorsal right fingers. The patient's mental status is actually of more concern. He goes between brief periods where he is completely lucid and periods where he is thrashing around the bed and either moaning, yelling or refusing to communicate. This is completely bizarre behavior and it is unclear to me what is going on. I certainly have concerns that he could have endocarditis from IV drug use and that his high white count is in some way tied to these behavioral changes perhaps through emboli or some other process, but as of yet we have negative blood cultures and no proof of that. It is also possible that what he is having his early withdrawal from heroin or other drugs producing this strange behavior. Seizures would seem unlikely given the periods where he is completely lucid followed by the unusual motor activity and the thrashing and seemingly purposely pulling on his restraints. Meningitis and encephalitis seem unlikely as the patient will abruptly and briefly stop and be basically completely normal, according to other examiners, in between periods of this agitation. He certainly has a supple neck and a negative procalcitonin both of which argue against a bacterial meningitis, and I would find a viral encephalitis such as herpes unusual as the patient waxes and wanes between periods that are almost normal and periods where he is wildly agitated. RECOMMENDATIONS: 1. I would continue the vancomycin he is receiving for the time being. 2. We will add to that cefepime, given that he is an IV drug user and at risk for Pseudomonas infections in particular. 3. Will repeat a procalcitonin level in the morning. 4. If the patient's abnormal mental status continues, I may be forced to do additional imaging such as an MRI to be followed perhaps even by a lumbar puncture to send for the BioFire CSF assay, but I think that his behavior is more likely related to drug withdrawal or perhaps even some complex personality issue rather than meningoencephalitis given his overall picture. 5. Will continue to follow this very strange and complex patient with you.
[2017-01-03] MEDS: Cefepime Inj 2,000 MG in Dextrose 5% Minibag Plus 100 ML IV SCH ×2 (02:02→09:22)
[2017-01-03] MEDS ORDERED: Vancomycin Inj 1,250 MG in 0.9% Sodium Chloride 250 ML IV SCH ×2 (02:26→02:27)
[2017-01-03 06:12] LABS: BASOPHILS % (AUTO) 0.2 % (0-3); EOSINOPHILS % (AUTO) 0.2 % (0-5); MONOCYTES % (AUTO) 10.7 % (4-12); Mean Corpuscular Hemoglobin 28.3 pg (27.0-35.0); Mean Corpuscular Volume 89.7 fL (81-100); NEUTROPHILS % (AUTO) 76.2 % (40-74); Platelet Count 302 bil/L (150-400)
[2017-01-03] MEDS: Haloperidol 5 mg/mL Inj IV PRN ×2 (07:18→09:55)
[2017-01-03] MEDS: LORazepam 1 mg Tablet PO PRN ×2 (07:22→11:10)
[2017-01-03] MEDS: Vancomycin Dose per Pharmacist XX SCH (07:29)
--- NOTE | 2017-01-03 08:20 | PCM.PNORTH ---
Subjective Date of Service: Jan 03, 2017 Visit Information: Reason for Visit Septic Joint Left Wrist, Ivda Surgery/Surgery Date Post-Op Day # Date of Admission: Jan 01, 2017 at 21:38 Hospital Day # Subjective Pt continues to be incoherent during exam and agitated. Nursing states that he had a rough night and was thrashing in bed all night long with his restraints Objective Exam Objective Gen - agitated Ext - RIght hand: healing excorations and abrasions to dorsum of hand/fingers Minimal erythema No active drainage or palpable fluctuance Left hand: Increased erythema to dorsum of hand Point of maximal tenderness is overlying proximal 1st webspace dorsally No palpable fluctuance No palpable wrist effusion Vital Signs and I/O Vital Sign - Last Date Time Temp Pulse Resp B/P Pulse Ox O2 Delivery O2 Flow Rate FiO2 01/02/17 21:11 108 01/02/17 20:29 38.2 20 140/82 97 Room Air Intake and Output 01/02/17 01/02/17 01/03/17 Cumulative From/Thru 14:59 22:59 06:59 01/01/17 16:35 - 01/03/17 06:23 Intake Total 100 ml 100 ml 2174 ml Output Total 800 ml 450 ml 1250 ml Balance -700 ml -350 ml 924 ml Intake Oral 100 ml 100 ml 650 ml IV Total 1524 ml Output Urine Total 800 ml 450 ml 1250 ml # Voids 2 Lab & Micro Results Laboratory Tests Test 01/02/17 12:40 01/02/17 13:05 01/02/17 18:47 01/03/17 05:44 Ammonia 39ug/dL (18-53) Urine Color Straw (YELLOW) Urine Appearance Hazy (CLEAR,HAZY) Urine pH 7.5 (5.0-8.0) Urine Specific [place] 1.010 (1.003-1.035) Urine Protein Negativemg/dL (NEG,TRACE) Urine Glucose (UA) Negativemg/dL (NEGATIVE) Urine Ketones Negativemg/dL (NEGATIVE) Urine Occult Blood Trace (NEGATIVE) Urine Nitrite Negative (NEGATIVE) Urine Bilirubin Negative (NEGATIVE) Urine Urobilinogen Normalmg/dL (NORMAL) Urine Leukocyte Esterase Negative (NEGATIVE) Urine RBC 3-10/hpf (0-2) Urine WBC 0-5/hpf (0-5) Urine Epithelial Cells Occasional/hpf (NONE-MOD) Urine Crystals None seen (NONE SEEN) Urine Bacteria None/hpf (NONE-FEW) Urine Hyaline Casts None/lpf (NONE) Urine Granular Casts None seen (NONE SEEN) Urine Waxy Casts None seen (NONE SEEN) Urine Red Blood Cell Casts None seen (NONE SEEN) Urine White Blood Cell Casts None seen (NONE SEEN) Urine Mucus None seen (None Seen) Urine Trichomonas None seen (NONE SEEN) Urine Yeast None (NONE SEEN) Urinalysis Comment None Urine Culture Reflexed Not indicated Urine Opiates Screen Positive Urine Methadone Screen Negative Urine Barbiturates Screen Negative Urine Amphetamines Screen Positive Urine Benzodiazepines Screen Negative Urine Cocaine Metabolite Screen Negative Urine Cannabinoids Screen Negative Procalcitonin 0.13ng/mL (0.00-0.08) White Blood Count 16.4th/mm3 (3.8-10.1) Red Blood Count 4.17mil/mm3 (4.40-5.80) Hemoglobin 11.8g/dL (13.8-17.2) Hematocrit 37.4% (41.0-50.0) Mean Corpuscular Volume 89.7fL (81-100) Mean Corpuscular Hemoglobin 28.3pg (27.0-35.0) Mean Corpuscular Hemoglobin Concent 31.6% (32.0-37.0) Red Cell Distribution Width 14.9% (12.3-15.4) Platelet Count 302bil/L (150-400) Neutrophils (%) (Auto) 76.2% (40-74) Lymphocytes (%) (Auto) 12.3% (14-46) Monocytes (%) (Auto) 10.7% (4-12) Eosinophils (%) (Auto) 0.2% (0-5) Basophils (%) (Auto) 0.2% (0-3) Sodium Level 141mEq/L (134-144) Potassium Level 4.1mEq/L (3.5-5.2) Chloride Level 102mEq/L (97-108) Carbon Dioxide Level 23mmol/L (18-29) Blood Urea Nitrogen 15mg/dL (6-24) Creatinine 0.84mg/dL (0.76-1.27) Estimat Glomerular Filtration Rate 102mL/min (>59) Glucose Level 94mg/dL (60-99) Calcium Level 9.5mg/dL (8.5-10.1) Total Bilirubin 0.4mg/dL (0.0-1.2) Aspartate Amino Transf (AST/SGOT) 20U/L (0-50) Alanine Aminotransferase (ALT/SGPT) 13U/L (0-44) Alkaline Phosphatase 96U/L (25-150) Total Protein 6.8g/dL (6.4-8.4) Albumin 3.6g/dL (3.4-5.0) Microbiology 01/01/17 Blood Culture - Preliminary, Resulted NO GROWTH AFTER 24 HOURS 01/02/17 MRSA (PCR) - Final, Complete Result Diagram: 01/03/17 0544 01/03/17 0544 Assessment & Plan Impression B/L hand cellulitis Problems: Plan Cont with antibiotics per infectious disease No wrist effusion or abscess clinically identified Will continue to follow, but currently no operative intervention indicated VTE Prophylaxis: SCDs Resuscitation Status: CPR: Attempt Resuscitation Zach Vieira DO Jan 03, 2017 08:20
[2017-01-03 09:03] VITALS: BP 144/86; PULSE 112; RESP 22; O2SAT 98
[2017-01-03] MEDS ORDERED: 0.9% Sodium Chloride 250 ML ONE (09:16)
[2017-01-03] MEDS ORDERED: cloNIDine 0.1 mg Tablet PO ONE (09:30)
--- NOTE | 2017-01-03 09:34 | PCM.PNMED ---
Subjective Date of Service Jan 03, 2017 Subjective Pt is restless this morning, at time of my exam he is partially clothed getting ready to leave. His cognition does appear improved from previous reports. He is aware of self, location, and situation. He denies overt pain but does not significant restlessness, anxiety prompting his desire to leave. No other complaints at this time. Denies chest pain or palpations. Denies current fever/ .chills. Appetite good, no other complaints. Exam Vital Signs Vital Sign - Last Date Time Temp Pulse Resp B/P Pulse Ox O2 Delivery O2 Flow Rate FiO2 01/03/17 09:03 36.6 112 22 144/86 98 Room Air Intake and Output 01/02/17 01/02/17 01/03/17 Cumulative From/Thru 15:00 23:00 07:00 01/01/17 16:35 - 01/03/17 06:23 Intake Total 100 ml 100 ml 2174 ml Output Total 800 ml 450 ml 1250 ml Balance -700 ml -350 ml 924 ml Intake Oral 100 ml 100 ml 650 ml IV Total 1524 ml Output Urine Total 800 ml 450 ml 1250 ml # Voids 2 General: Alert, Cooperative, Mild Distress Eyes: Other (Pupils are mild/moderately dialated. ) Mouth: Mucous Membr Moist/[place] Cardiovascular: Exam Unremarkable Skin: Significant Lesions (Redness with mild indiration of letf hand. No overt abscess palpable. well perfuse. ) IVs and Medications Medications Reviewed: Medications were reviewed in detail Lab and Diagnostics Result Diagram: 01/03/17 0544 01/03/17 0544 X-Rays, CTs and MRIs Wrist Ct scan reviewed : 1. Severely limited examination due to motion artifacts. 2. Diffuse soft tissue swelling. Head CT scan reviewed : Acute abnormality is not identified. Left temporal tip encephalomalacia. Sinus disease as described. Assessment & Plan Mr. Fitzgerald is a 51 year old gentleman with history of heroin IVDU and recent GLF, that presented to [facility] with acute onset of left wrist pain. He was admitted for evaluation and treatment of suspected left wrist infection secondary to recent IVDU. Hospital day one. 1. Left wrist pain, acute, present on admission. Ongoing Jonn is at the site of IVD injection . CT scan show soft tissue swelling, likely infection. WBC is 22.K - Continue Zosyn. Blood culture in process -- Ortho consult is pending 2. Acute encephalopathy : Metabolic/chemical due to IVDA Patiet is agitated with acute delirium and on restraint . Ativan given earlier did not make any difference and seem to be having paradoxical effect. Will try Haldol and see how that works. I doubt Opiates withdrawal . He is on Morphine and home oxycodone 3. Ground Level Fall : Likely due to drug intoxication - CT brain ordered by ED to r/o CVA 4 . History of IVDU, chronic. Ongoing - Patient reports IV heroin use approx one year since April 2015 - Social work referral for resources - HIV testing pending . Patient is known to have hepatitis C 5. Tobacco use disorder, chronic - Pt reports 1ppd - 21mg nicotine patch scheduled This is a very sick patient with acute delirium , soft tissue infection and possibly heroin withdrawal . He is quite agitated and restrained to prevent self injury . COntinue morphine IV to minimized risk kathy opiate withdrawal . Haldol PRN IM for agitation. Consider adding clonidine . GI Prophylaxis: H2 parveen VTE Prophylaxis: SCDs Resuscitation Status: CPR: Attempt Resuscitation James Johnson DO Jan 03, 2017 09:34
[2017-01-03 10:25] VITALS: PULSE 100
[2017-01-03] MEDS ORDERED: Dalbavancin Inj 1,500 MG in Dextrose 5% 500 ML IV ONE (11:10)
[2017-01-03] MEDS ORDERED: Vancomycin Serum Trough XX ONE (12:00)
--- NOTE | 2017-01-03 12:11 | PROG NOTE ---
[address] [address] PROGRESS NOTE PATIENT: ENIO ORTIZ : 1965 MR#: [id number] ADMIT: 01/01/2017 JOB ID: [id number] DATE: 01/03/2017 INFECTIOUS DISEASE FOLLOWUP NOTE: REASON FOR FOLLOWUP: Left hand infection secondary to IV drug use. INTERVAL HISTORY: Recall that this is the absolutely bizarre case that I was asked to evaluate yesterday evening. Yesterday, the patient was wildly agitated and thrashing about the bed about 95% of the time and during the other 5% of the time had brief periods of what appeared to be a stuporous lucidity. He was essentially impossible to obtain history from or deal with when I saw him yesterday evening, and I was concerned to some degree about meningoencephalitis but he had a supple neck and at times was able to answer questions appropriately, though most of the time he was thrashing around in bed and simply moaning or yelling. Overnight, the patient has had much the same pattern but today, there are more periods of lucidity. In seeing the patient this morning part of the time he will sit up and briefly be calm and actually answer questions in a rational fashion and then lapse into periods where he does not seem to be completely awake and is thrashing about the bed. This activity in no way resembles a seizure, however, and seems to be clearly purposeful. The patient states he is "extremely restless" and that is the reason for his arcing back and forth in bed and throwing his arms and legs up into the air periodically. The patient has told the hospitalist, as well as myself, emphatically that he will be leaving today. He says he has been here way too long and cannot stand to be confined. We have told him that it does appear he has a fairly significant infection in his left hand and that we remain very concerned but the patient says he does not care and will be leaving in the next hour or two regardless of anything we may attempt. He states he has no fevers or chills overnight. He denies headache. Denies a stiff neck. He denies being confused despite these periods of strange behavior. He has no GI symptoms. He notes that his right hand does not hurt where he has some scraped up fingers from a fall but he does have some pain along the radial aspect of his right hand, though he does think it is a bit better overnight. As noted, no fever or chills. PHYSICAL EXAMINATION: Reveals a gentleman who had a temperature to 38.2 at 2030 hours last night. He is afebrile now at 36.6, pulse 100, respiratory rate 22, blood pressure 144/86, saturating well on room air. Examination of the head reveals no trauma. His neck is supple. Eyes without conjunctivitis or scleral icterus. Lungs: Clear posteriorly. Abdomen benign. The right hand has some abrasions on the dorsal fingers which are healing well and are very shallow. There is full range of motion on the right wrist. The left wrist still has full range of motion, and he has about 4/5 inking machine tender strength but there is some pain around the thenar aspect of the hand associated with some cellulitis. There is no cellulitis anywhere else on the body. LABORATORIES: Include a white count that peaked at 22,000 yesterday. It is down to 16,000 today. His creatinine 0.84. His urinalysis without white cells. Micro studies include the negative MRSA screen and the negative blood cultures. A brain CT obtained on the showed the left temporal tip encephalomalacia. It is otherwise basically negative. IMPRESSION: This patient has a significant soft tissue infection around the left radial hand especially on the dorsal aspect of the hand. I see no evidence for septic joint though, as the patient has full range of motion of the wrist. The lesions on both hands are apparently due to a fall he suffered a couple of days ago. The patient would seem to be manifesting some unusual form of drug withdrawal at this point, given his extreme restlessness and periods of abnormal behavior interspersed with periods where he seems lucid. Both the hospitalist and I agree he is certainly with it enough to manage his own affairs, and we respect his independence and desire to leave the hospital within the next hour or two with or without medical approval. I still remain concerned about the erythema around the left hand even though he does not have a septic left wrist by clinical criteria. I would much prefer to observe the patient for a couple of days until his white count is normal and his mental status is also more normalized but it appears we will not have that opportunity. In view of the fact the patient is leaving the hospital with a high white count and still with an erythematous dorsal left hand, I think our best bet is to use dalbavancin. I recognize this is expensive but the patient really should be receiving intravenous antibiotics for a bit longer and being closely observed. Whether oral antibiotics would be an option here is really hard to know, as the patient, at this point, does not seem like he would be reliable in terms of taking oral antibiotics. He tells us outright that he is very depressed over the recent of his and continuing to abuse heroin and other substances including methamphetamine. RECOMMENDATIONS: 1. Will discontinue the vancomycin. 2. Will give the patient a single dose of dalbavancin 1.5 g x1. 3. The patient can be discharged to avoid a situation where he will of force us to pursue an AMA discharge. 4. The patient is certainly welcome to follow up with me in clinic and hopefully, he will follow up with Dr. Vieira in [facility] as well.
--- NOTE | 2017-01-03 13:56 | PCM.DIMED ---
Discharge Instructions Date of Service Jan 03, 2017 Dates of Hospitalization Jan 01, 2017 at 21:38 Discharge Diagnosis Discharge Diagnosis 1. Left wrist pain, acute, present on admission. 2. Left wrist cellulitis. 3. Active IVDU. 4. Opiate dependence. 5. Acute encephalopathy. Diet No restrictions Activity No restrictions Call your provider Fever or Chills, Shortness of breath, Chest pain Patient Instructions Follow-up Provider: Khris Hussein MD Follow-up with PCP in: 1 week James Johnson DO Jan 03, 2017 13:56
--- NOTE | 2017-01-03 14:11 | NUR ---
Discharge Pt d/c'd home at approx 1410. Finished antibiotics and left via w/c to his personal car. IV d/c'd intact. Pt left w/ all belongings, no new RX given.
--- NOTE | 2017-01-03 15:38 | NUR ---
Social Work-discharge: SW attempted to see pt, but RN informed SW that pt has already discharged. Pt had one dose of IV abx. Mimi Joy MSW
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
== END 2017-01-03 14:10 | disposition home or self-care (01) | DRG 602 ==
LOC: SED 16:26 → OSC 21:38
PROVIDERS: ADMIT Hospitalist; ATTEND Hospitalist
PROC: 4A033R1 Measurement of Arterial Saturation, Peripheral, Percutaneous Approach (ICD-10-PCS; principal; 2017-01-02)
DX: L03.114 Cellulitis of left upper limb (principal); G92 Toxic encephalopathy; F11.20 Opioid dependence, uncomplicated; L03.113 Cellulitis of right upper limb; F17.210 Nicotine dependence, cigarettes, uncomplicated; W19.XXXA Unspecified fall, initial encounter; Y93.9 Activity, unspecified; Y92.9 Unspecified place or not applicable; Y99.9 Unspecified external cause status; M25.532 Pain in left wrist; M25.531 Pain in right wrist; R30.0 Dysuria; R45.1 Restlessness and agitation

== ENCOUNTER 2017-05-21 06:44 | Observation (INO) | payer MEDICARE ==
[~2017-05-21] VITALS: Ht 180.3 cm; Wt 77.3 kg
[2017-05-21 06:54] VITALS: BP 107/76; PULSE 80; RESP 16; O2SAT 99
--- NOTE | 2017-05-21 07:24 | ED.REPORT ---
HPI-Extremity Problem Upper Date of Service May 21, 2017 ED Provider: Zaki Solano MD Patient is a 51 year old male with a history of IV drug use who presents to the ED complaining of right wrist swelling onset 3 days ago. Associated symptoms include erythema and pain in the right thumb with movement. He denies fever. The patient reports that it started as a small lump on his wrist but then continued to swell. Patient states that he injected heroin into the area 3 days ago and uses heroin daily. Nursing Notes Stated Complaint: SWOLLEN RIGHT HAND Chief Complaint: Extremity Trauma Nursing Notes Reviewed: Yes Allergies: Coded Allergies: No Known Allergies (Unverified , 01/10/16) No Active Prescriptions or Reported Meds General Time Seen by MD: 07:23 Chief Complaint Wrist injury right Hx Obtained From: Patient Arrived By: Walk-in Onset Occurred: 3 days ago Symptom Duration: Since onset Location: : Wrist right Quality: Painful Severity: Current: Moderate Exacerbated by: Movement Similar Sx Previous: No Past Medical History Past Medical History History of back pain Past Surgical History EGD 04/05/04 Smoking History Current Every Day Smoker Social History Alcohol Use: Denies alcohol use Drug Use: IV drugs Ambulatory Status Independent Review of Systems Constitutional: Denies: Chills, Fever Musculoskeletal: Reports: Extremity pain, Extremity swelling Skin: Denies Itching, Denies Rash Neurologic: Denies: Numbness, Weakness Complete sys rev & neg: except as marked. Respiratory: Denies: Non-productive cough, Shortness of breath Physical Exam Initial Vital Signs Vital Signs (First) Date Time Temp Pulse Resp B/P Pulse Ox O2 Delivery O2 Flow Rate FiO2 05/21/17 06:54 36.2 80 16 107/76 99 Room Air Initial VS: Reviewed General/Constitutional: Awake, Alert Respiratory / Chest: Atraumatic, Breath sounds NL, Breath sounds = bilat, No respiratory distress Cardiovascular: Heart rate NL, Regular rhythm, Heart sounds NL, No gallop, No murmurs, No rubs mildly swollen right hand not excessively warm no palpable abscess erythema of the flexor side extending up to mid forearm Skin: Atraumatic, Color NL, No rash Neurologic: Oriented X3, Speech NL Head / Eyes: Atraumatic, Normocephalic, PERRL, EOMI axillary adenopathy Psychiatric: Affect NL, Mood NL Interpretation & Diagnostics Lab Results Interpretation Result Diagram: 05/21/17 0840 05/21/17 0840 Test 05/21/17 08:40 White Blood Count 8.1th/mm3 (3.8-10.1) Red Blood Count 3.84mil/mm3 (4.40-5.80) Hemoglobin 11.7g/dL (13.8-17.2) Hematocrit 36.1% (41.0-50.0) Mean Corpuscular Volume 94.0fL (81-100) Mean Corpuscular Hemoglobin 30.5pg (27.0-35.0) Mean Corpuscular Hemoglobin Concent 32.4% (32.0-37.0) Red Cell Distribution Width 13.7% (12.3-15.4) Platelet Count 224bil/L (150-400) Neutrophils (%) (Auto) 45.4% (40-74) Lymphocytes (%) (Auto) 39.3% (14-46) Monocytes (%) (Auto) 11.9% (4-12) Eosinophils (%) (Auto) 3.2% (0-5) Basophils (%) (Auto) 0.1% (0-3) Erythrocyte Sedimentation Rate 16mm/hr (0-30) Sodium Level 138mEq/L (134-144) Potassium Level 3.9mEq/L (3.5-5.2) Chloride Level 100mEq/L (97-108) Carbon Dioxide Level 25mmol/L (18-29) Blood Urea Nitrogen 29mg/dL (6-24) Creatinine 0.87mg/dL (0.76-1.27) Estimat Glomerular Filtration Rate 98mL/min (>59) Glucose Level 120mg/dL (60-99) Calcium Level 9.4mg/dL (8.5-10.1) Total Bilirubin 0.2mg/dL (0.0-1.2) Aspartate Amino Transf (AST/SGOT) 15U/L (0-50) Alanine Aminotransferase (ALT/SGPT) 13U/L (0-44) Alkaline Phosphatase 88U/L (25-150) Total Protein 6.8g/dL (6.4-8.4) Albumin 3.6g/dL (3.4-5.0) Hold [place] Top Tube Received (Received) X-Ray Interpretation Xray Interpretation: no evidence of fracture or trauma X-Ray Ordered: Wrist right Interpretation / Wet Read by: Wet read ED physician Interpretation: Normal exam Re-Eval/Medical Decision Med Decision/Clinical Course 51-year-old injection drug user with a right hand infection involving the right thumb. It does not appear to be any drainable abscess at present, I am concerned that he has pain with passive movement of the thumb and there may be flexor tendon involvement. The extent of his erythema has been outlined. Blood cultures have been obtained. We started him on IV Vanco he will be admitted to the hospitalist service with orthopedics consultation. Re-Evaluation/Progress : Time of Eval: 07:39 Re-Evaluation/Progress Note: Discussed plan for labs and admit. Patient understands and agrees to plan. All questions were addressed. Consultation #1: Referral / Consult Name: Miguelangel Silva MD Consulted With: Surgeon Call Returned at: 08:27 Photographic Equipment Technician: Will see patient, Agrees with eval, Agrees with plan Consultation #2: Referral / Consult Name: Ayden Murcia MD Consulted With: Hospitalist Call Returned at: 09:27 Photographic Equipment Technician: Agrees with eval, Agrees with plan, Accepts admit Counseled Regarding: Diagnosis, Lab results, Need for admission Discharge & Departure Impression: Primary Impression: Cellulitis Site of cellulitis: extremity Site of cellulitis of extremity: upper extremity Laterality: right Qualified Code: L03.113 - Cellulitis of right upper limb Disposition: ADMITTED TO HOSPITAL Discharge Condition All VS Reviewed: Yes Condition: Stable Referrals: Khris Hussein MD (PCP) Luis F Attestation Portions of this note were transcribed by Jayla Vega. I, Dr. Solano personally performed the history, physical exam and medical decision-making; I reviewed and confirmed the accuracy of the information in the transcribed note. Signed by: Luis F Enciso, 05/21/17 copies to: Khris Hussein MD, Donald L MD May 21, 2017 07:24 Ly Vega May 21, 2017 07:40
[2017-05-21] MEDS ORDERED: Vancomycin Inj 1,000 MG in IV Premix 1 EACH IV ONE (07:45)
[2017-05-21] MEDS ORDERED: HYDROmorphone 1 mg/mL Inj IVPUSH PRN ×2 (07:45→10:05)
[2017-05-21 09:01] LABS: BASOPHILS % (AUTO) 0.1 % (0-3); EOSINOPHILS % (AUTO) 3.2 % (0-5); MONOCYTES % (AUTO) 11.9 % (4-12); Mean Corpuscular Hemoglobin 30.5 pg (27.0-35.0); NEUTROPHILS % (AUTO) 45.4 % (40-74); Platelet Count 224 bil/L (150-400)
[2017-05-21 09:21] LABS: ERYTHROCYTE SEDIMENTATION RATE 16 mm/hr (0-30)
[2017-05-21] MEDS ORDERED: Vancomycin Dose per Pharmacist XX SCH (10:00)
[2017-05-21] MEDS ORDERED: Polyethylene Glycol (PEG) 17 Gm Powder PO PRN (10:05)
[2017-05-21] MEDS ORDERED: Alum-Mag Hydrox-Simeth 30 mL Suspension PO PRN (10:05)
[2017-05-21] MEDS ORDERED: Ondansetron 2 mg/mL 2 mL Inj IVPUSH PRN ×2 (10:05→10:10)
[2017-05-21] MEDS ORDERED: Lactated Ringer's 1,000 ML IV SCH (10:08)
--- NOTE | 2017-05-21 10:18 | PCM.CONPHA ---
Subjective Date of Service: May 21, 2017 Cellulitis Reason for Pharmacy Consult: Vancomycin Dosing Assessment/Plan Assessment/Plan Patient is a 51 y.o. male receiving vancomycin for cellulitis. Concurrent abx include: ceftriaxone. WBC count is 8.1 and the patient is afebrile. Patient is 72 kg, 71 inches tall with a SCr of 0.87 mg/dL-- estimated CrCl of > 90 mL/min. Based on patient parameters vancomycin will be dosed at 1000mg q8h with a target trough of 10-15 mcg/mL. Trough will be drawn prior to the 4th dose on 05/22 @ 0830. Pharmacy will follow daily and adjust as appropriate. Thank you for the consult in the care of this patient. RWJenaro Pugh PharmD May 21, 2017 10:18
[2017-05-21 10:33] VITALS: BP 110/77; PULSE 74; RESP 19; O2SAT 98
[2017-05-21] MEDS: 0.9% Sodium Chloride 1,000 ML IV SCH (10:43)
[2017-05-21] MEDS: cefTRIAXone Inj 1,000 MG in Dextrose 5% Minibag Plus 50 ML IV SCH (10:43)
--- NOTE | 2017-05-21 11:11 | NUR ---
New Admit patient is alert and orientedX3. Able to make needs known. Patient arrived to unit approx 1009. Stable vital signs. new orders for Urinalysis and Nasal MRSA Screen. Nasal swab collected and sample sent out to lab. Dr. Silva at bed side to see patient r/t right hand cellulitis. Red team hospitalist vanessa norman. IV ABO started as ordered. Denies pain or discomfort. New diet orders per Dr. Silva General diet and patient aware.
--- NOTE | 2017-05-21 11:33 | DRSVH ---
PROCEDURE: X-RAY RIGHT WRIST COMPLETE, MINIMUM THREE VIEWS ([id number]) INDICATIONS: swollen/painful TECHNIQUE: 4 views of the wrist were acquired. COMPARISON: None. FINDINGS: Bones: No fractures or dislocations. No suspicious bony lesions. Scaphoid view: The scaphoid appears intact. Soft tissues: No suspicious soft tissue calcifications. IMPRESSION: 1. No fracture or subluxation. Dictated by: Antonio Kaba M.D. on 05/21/2017 at 11:31 Approved by: Antonio Kaba M.D. on 05/21/2017 at 11:31
--- NOTE | 2017-05-21 12:15 | PCM.HPMED ---
Subjective Date of Service May 21, 2017 Primary Provider: Admitting Physician: Ayden Murcia MD Primary Care Physician: Khris Hussein MD Attending Physician: Ayden Murcia MD Admit Status: From the Emergency Department, Admit to [facility] Team Chief Complaint: Cellulitis History of Present Illness: 51 yo pleasant Male h/o of IVDA, untreated Hep C, daily smoker, hx of back pain presented to [facility] with complaint of right wrist pain and swelling for the last 3 days. Patient says that pain in the right thumb has especially increased and he is noticing overall increased erythema. Denies any fever. Patient says that he does inject IV heroin at the right wrist and last injected at the right wrist 3 days ago. Uses IV drugs daily. Says initially started as a small lump and swelling progressed from there. Denies any fever or chills. Patient had a similar admission last year involving the left hand. Had been seen by or thought that time was treated with IV antibiotics nonsurgically. Patient denies any other history of admissions for infection. Denies any known history of MRSA. Patient does not regularly follow up with her primary care physician. Says that he stopped following up and taking his cholesterol medications after his left him in 2014. Review of Systems: 12 point review of symptoms negative except for that in history of present illness Allergies Coded Allergies: No Known Allergies (Unverified , 01/10/16) Home Medications Not currently taking any medications Was on statin in the past but stopped taking. PMH IVDA- Heroin, clean for 18 yrs, resumed after left him in 2014. Back Pain, chronic. HLD- stopped taking his statin. untreated Hep C Surgical History EGD 04/05/04 Back Surgery Family History Patient says family history of cardiac issues including MN's in father and uncles. Can't recall ages of diagnosis. Social History Hx Alcohol Use: Yes (quit year ago) Hx Substance Use: Yes (10 hours ago heroin use per aptient) Smoking Status: Current Every Day Smoker Living Arrangement: Alone Exam Vital Signs Vital Sign - Last Date Time Temp Pulse Resp B/P Pulse Ox O2 Delivery O2 Flow Rate FiO2 05/21/17 10:33 36.9 74 19 110/77 98 Room Air Exam Gen: NAD, AOx4, non-toxic appearing. HEENT: NCAT, PERRLA, EOMI, MMM, sclera anicteric. Neck: Soft, supple, no thyromegaly/JVD/LAD. Resp: CTAB, no R/R/W. CV: S1 S2, RRR, No Murmur appreciated. Abd: Soft, (+) BS, NT/ND, no guarding/rebound/organomegaly. Ext: +PP, No edema. R Wrist/Hand- moderately swollen right hand, No palpable abscess, erythema of the flexor side extending up to mid forearm. Radial Pulse palpable. Skin: warm/dry/intact Neuro/Psych: Cooperative, appr mood/affect. CN II-XII grossly intact. R hand- can make partial fist, no decreased sensation in digits. Lab and Diagnostics Result Diagram: 05/21/1783905/21/17839 X-Rays, CTs and MRIs 05/21/17- X-RAY RIGHT WRIST- No fracture or subluxation. Assessment & Plan 51 yo pleasant Male h/o of IVDA, untreated Hep C, daily smoker, hx of back pain presented to [facility] with complaint of right wrist pain and swelling for the last 3 days. admitted for Cellulitis of right upper limb and to monitor for compartment syndrome. Cellulits of R upper Limb- POA, active- At site of IVDA injection. On exam, +swelling, erythem, no abscess appreciated. Will need to monitor for compartment syndrome. 05/21/17- X-RAY RIGHT WRIST- No fracture or subluxation. Will get CT hand to evaluate for involvement of deep tissue. Started IV Abx Vancomycin and Ceftriaxone on 05/21. Blood Cx sent. MRSA screen pending. Pain- receiving Oxycodone, Diluadid prn. Ortho Surgery- Dr. Silva consulted. No Surgery planned for now, f/u recs. Can resume diet per ortho. IVDA, chronic, active- Pt daily heroin user. Monitor for WD symptoms Pain- receiving Oxycodone, Diluadid prn. Social work consult for substance abuse. HLD- chronic, active- Pt does not want to resume statin. Untreated Hepatitis C- chronic, active - Liver enzymes within normal limits. Hepatitis panel ordered. - Will attempt to arrange follow up care with new PCP to follow up on this and evaluate for treatment. Daily Smoker- chronic, active- cessation advised. Nicotine patch. Code- Full Acetaminophen for mild pain when necessary. Bowel regimen Senna and MiraLAX scheduled and PRN. Zofran when necessary for nausea and vomiting. Status- Patient is admitted under inpatient status expected length of stay greater than 2 midnights due to severity of presenting symptoms, risk of adverse events, and complexity of treatment plan. Pain Evaluation: Adequate Pain Control VTE Prophylaxis: Sub-Q Heparin (Unfractionated) VTE Mechanical Devices: Intermittant Pneumatic CD Resuscitation Status: CPR: Attempt Resuscitation Ayden Murcia MD May 21, 2017 12:15
--- NOTE | 2017-05-21 13:55 | NUR ---
MRSA screen MRSA PCR negative per micro results.
[2017-05-21 16:31] VITALS: BP 105/66; PULSE 47; RESP 16; O2SAT 99
[2017-05-21] MEDS: Heparin 5,000 Unit/mL Inj SUBQ SCH (16:47)
[2017-05-21] MEDS ORDERED: Vancomycin Inj 1,000 MG in IV Premix 1 EACH IV SCH (17:00)
--- NOTE | 2017-05-21 17:14 | NUR ---
JACINTO explained and signed. Copy of JACINTO and Medicare self administered medication information given to pt.
[2017-05-21 17:26] VITALS: PULSE 75
[2017-05-21] MEDS: HYDROmorphone 1 mg/mL Inj IVPUSH PRN ×2 (18:26→23:01)
--- NOTE | 2017-05-21 18:33 | NUR ---
Right hand pain c/o pain to right hand 8/10 per pain assessment. PRN dilaudid given as ordered with effective pain control. patient is up for dinner at bed side. PRN Nicotine patch placed to right upper shoulder as ordered for smoking cessation due to patient asking to go to his car for smoking, patient agrees with Nicotine patch placement. IV ABO Vanco and Ceftrixone as ordered with no adverse effects reported by patient. per right hand assessment, swelling with slight redness and no drainage noted. Urinalysis sample sent to lab per orders. Continue to monitor Right hand pain, sign and symptoms of with draw from Heroin use, adverse effects due IV ABO use, sign and symptoms of infection to right hand, and mood.
[2017-05-21 18:49] LABS: APPEARANCE,URINE CLEAR (CLEAR,HAZY); COLOR,URINE STRAW (YELLOW); OCCULT BLOOD,URINE NEGATIVE (NEGATIVE); PH,URINE 5.5 (5.0-8.0); UROBILINOGEN,URINE NORMAL (NORMAL)
--- NOTE | 2017-05-21 19:42 | NUR ---
Off to CT Pt. left floor at [address] Transported via wheelchair via rvda master certified rv technician. Pt. came back on floor at 1941 transported via wheelchair via rvda master certified rv technician.
[2017-05-21 20:00] VITALS: BP 126/83; PULSE 56; PULSE 69; RESP 16; O2SAT 99
--- NOTE | 2017-05-21 20:20 | DRSVH ---
PROCEDURE: CT WRIST RIGHT WITH CONTRAST ([id number]) INDICATIONS: hx IVDA, R Wrist/Hand Cellulitis TECHNIQUE: After the administration of intravenous contrast, 3 mm axial sections acquired of the right wrist, wi th coronal and sagittal reformats. For radiation dose reduction, the following was used: automated exposure control, adjustment of mA and/or kV according to patient size. COMPARISON: [facility], CR, XR WRIST 3VW RT, 05/21/2017, 7:08. FINDINGS: Image quality: There is mild motion artifact slightly limit evaluation. Bones: No definite bony erosions or periosteal reaction. No fractures or subluxation. Soft tissues: There is subcutaneous edema most prominent along the radial and dorsal aspects of the d istal forearm, wrist, and hand. No soft tissue ulcers. No definite peripheral enhancing abscess col lections. There is no similar fluid tracking along the 1st Central compartment. The visualized flex or and extensor tendons appear intact. IMPRESSION: 1. Extensive subcutaneous edema compatible with cellulitis. 2. Tenosynovial fluid tracking along the 1st extensor compartment of the wrist consistent with tenos ynovitis and suspicious for septic tenosynovitis given clinical history. 3. No definite CT evidence of osteomyelitis. Dictated by: Antonio Kaba M.D. on 05/21/2017 at 20:08 Approved by: Antonio Kaba M.D. on 05/21/2017 at 20:18
[2017-05-21] MEDS: Famotidine Inj 20 MG in IV Premix 1 EACH IV SCH (21:07)
[2017-05-21 23:39] VITALS: BP 133/88; PULSE 79; RESP 16; O2SAT 100
[2017-05-22] MEDS: 0.9% Sodium Chloride 1,000 ML IV SCH ×2 (00:13→07:26)
[2017-05-22] MEDS: Heparin 5,000 Unit/mL Inj SUBQ SCH ×2 (00:16→07:22)
--- NOTE | 2017-05-22 03:24 | NUR ---
Heart Rate/ Mentation Pt. has been overly drowsy all shift, and only responds to repeated stimuli. Pt's heart rate has been fluctuating throughout the shift. Pt. had a period of tachycardia while using urinal at 140. Pt. had a period of bradycardia while lying down after using urinal at 37. Tim BUSTOS paged and made aware. No new orders at this time. Will continue to monitor.
[2017-05-22 04:44] VITALS: BP 155/94; PULSE 57; RESP 16; O2SAT 100
[2017-05-22] MEDS: Famotidine Inj 20 MG in IV Premix 1 EACH IV SCH (07:20)
[2017-05-22] MEDS: cefTRIAXone Inj 1,000 MG in Dextrose 5% Minibag Plus 50 ML IV SCH (07:26)
[2017-05-22] MEDS: HYDROmorphone 1 mg/mL Inj IVPUSH PRN (08:14)
[2017-05-22] MEDS ORDERED: Vancomycin Serum Trough XX ONE (08:30)
[2017-05-22 09:24] VITALS: BP 142/90; PULSE 60; RESP 17; O2SAT 100
[2017-05-22 09:25] VITALS: PULSE 76
[2017-05-22 09:38] LABS: BASOPHILS % (AUTO) 0.1 % (0-3); EOSINOPHILS % (AUTO) 1.4 % (0-5); MONOCYTES % (AUTO) 8.4 % (4-12); Mean Corpuscular Hemoglobin 30.5 pg (27.0-35.0); Mean Corpuscular Volume 91.2 fL (81-100); NEUTROPHILS % (AUTO) 60.8 % (40-74); Platelet Count 222 bil/L (150-400)
[2017-05-22 09:43] LABS: INR 0.89 ratio
--- NOTE | 2017-05-22 10:21 | NUR ---
Social Work: Initial Assessment/Discharge/Multi-Disciplinary Rounds D: EMR reviewed. Please see Initial Assessment linked to this note for more information. Pt is a 51 y/o male admitted Claudio - readmit risk score of 2 - for right hand cellulitis per H&P. Pt's insurance is Medicare. PCP is Jenaro Hussein MD. SW met with pt at bedside to conduct initial assessment. Pt was alert and oriented x3. SW explained role and wrote phone number on white board. SW provided [facility] Discharge Planning Checklist and encouraged pt to contact SW for any discharge planning questions. Pt discussed in multidisciplinary rounds. Pt is medically stable for discharge at this time. Pt has been eager to leave AMA overnight and this morning. requested SW prioritize pt first this morning in the event pt attempts to leave AMA. ordered CD assessment for recent IVDU (IV Heroin within last 48-hours), SW acknowledged. requested SW fax rx to pt's preferred pharmacy and make sure to notify pt of pharmacy hours and that rx will be ready for pick-up. IMELDA agreeable. Pt lives at home [place] in [place] where he is independent with ADLs, ambulation, and does not own or use any DME. Pt lives in single-story level home with 0 steps. Pt states he is independent and will drive himself home today at discharge. IMELDA attempted CD assessment - pt declined. IMELDA offered CD resources - pt declined. Pt stated he just wants to leave and declined any needs. IMELDA asked pt for preferred pharmacy - pt stated [facility]. Pt agreeable for SW to fax rx to [facility] to have filled. IMELDA informed pt that it is crucial for pt to retrieve rx today for his recovery from hospital. IMELDA confirmed with pt that pharmacy closes at 1800. Pt agreeable to retrieve rx today. IMELDA faxed rx to [facility] [place] ([phone]) and called pharmacist to confirm pt will seed cone picker rx today before 6pm. Pt declined DPOA/advanced directive ppw. Pt stated SW is not to contact any [facility] listed in his file. IMELDA agreeable and acknowledged. A: Pt who is independent at baseline and declined CD assessment and CD resources. Pt has hx of IVDU. Pt declined any needs or SW services at this time. P: Pt anticipated to discharge home via POV today. IMELDA asked pt for preferred pharmacy - pt stated [facility] [place]. Pt agreeable for SW to fax rx to [facility] to have filled. IMELDA informed pt that it is crucial for pt to retrieve rx today for his recovery from hospital. IMELDA confirmed with pt that pharmacy closes at 1800. Pt agreeable to retrieve rx today. also discussed importance of retrieving medication today and taking as prescribed. IMELDA faxed rx to [facility] [place] ([phone]) and called pharmacist to confirm pt will seed cone picker rx today before 6pm. Pharmacist confirmed receipt and will have rx ready for pick-up. No other SW needs at this time. DARINEL Smith Addendum: 05/22/17 at 1036 by YUMIKO GOODE Amended: Links added. Addendum: 05/22/17 at 1045 by YUMIKO GOODE RN notified SW that pt does not have any money for medication and can't go to the bank until tomorrow because today is a holiday. Pt states he does not have a debit/credit card or ibarra. IMELDA placed T/C to [facility] pharmacy who confirmed that pt doesn't have rx coverage with his MCR plan and cost will be $28. SW notified RN and RN stated pt will get a dose of rx here at hospital before discharge and pt is willing to seed cone picker rx tomorrow when he can get money. RN notified pt of rx cost. RN stated dose provided at hospital will cover pt through tomorrow. RN reinforced importance for pt to retrieve medication tomorrow. Pt agreeable to retrieve medication tomorrow and aware of cost. DARINEL Smith
[2017-05-22] MEDS ORDERED: AMOX-366 PO (10:23)
--- NOTE | 2017-05-22 10:27 | PCM.DIMED ---
Discharge Instructions Date of Service May 22, 2017 Dates of Hospitalization May 21, 2017 at 09:22 Discharge Diagnosis Discharge Diagnosis Cellulits of R upper Limb- POA, active- Infectious tenosynovitis Right hand, poa, active. IVDA, chronic, active- Untreated Hepatitis C- chronic, active . Daily Smoker- chronic, active- HLD- chronic, active- Medication Instructions Additional med instructions Please take antibiotics for next 14 days. Test Results Test Results [facility] Diagnostic Imaging [place] [address] Patient Name: ENIO ORTIZ MR#: [id number] Location: [facility] Ordering Phys: Ayden Murcia MD Date of Service: 05/21/17 1547 PROCEDURE: CT WRIST RIGHT WITH CONTRAST ([id number]) INDICATIONS: hx IVDA, R Wrist/Hand Cellulitis TECHNIQUE: After the administration of intravenous contrast, 3 mm axial sections acquired of the right wrist, with coronal and sagittal reformats. For radiation dose reduction, the following was used: automated exposure control, adjustment of mA and/or kV according to patient size. COMPARISON: [facility], CR, XR WRIST 3VW RT, 05/21/2017, 7:08. FINDINGS: Image quality: There is mild motion artifact slightly limit evaluation. Bones: No definite bony erosions or periosteal reaction. No fractures or subluxation. Soft tissues: There is subcutaneous edema most prominent along the radial and dorsal aspects of the distal forearm, wrist, and hand. No soft tissue ulcers. No definite peripheral enhancing abscess collections. There is no similar fluid tracking along the 1st Central compartment. The visualized flexor and extensor tendons appear intact. IMPRESSION: 1. Extensive subcutaneous edema compatible with cellulitis. 2. Tenosynovial fluid tracking along the 1st extensor compartment of the wrist consistent with tenosynovitis and suspicious for septic tenosynovitis given clinical history. 3. No definite CT evidence of osteomyelitis. Dictated by: Antonio Kaba M.D. on 05/21/2017 at 20:08 Approved by: Antonio Kaba M.D. on 05/21/2017 at 20:18 Diet Discharge Diet: No restrictions Activity Discharge Activity: Limited until seen by PCP Patient Instructions Follow-up plan Follow up with your doctor in 1 week to ensure continued improvement of Right hand cellulitis. Follow-up Provider: Khris Hussein MD Follow-up with PCP in: 1 week Ayden Murcia MD May 22, 2017 10:27
[2017-05-22] MEDS ORDERED: Amoxicillin-Clav 875-125 mg Tablet PO STA (10:36)
--- NOTE | 2017-05-22 10:39 | NUR ---
Social Work: Attempted Chemical Dependency Assessment SW attempted CD assessment - pt declined. SW offered CD resources - pt declined. Pt stated he just wants to leave and declined any needs. See SW initial assessment and discharge note for further information. DARINEL Smith
[2017-05-22] MEDS ORDERED: AMOX500C2 PO (10:52)
--- NOTE | 2017-05-22 13:27 | PCM.DC.MED ---
Discharge Summary Date of Service May 22, 2017 Dates of Hospitalization Date of Hospital Admission May 21, 2017 at 09:22 Date of Discharge: May 22, 2017 Providers: Admitting Physician: Salas Lr MD Primary Care Physician: Khris Hussein MD Attending Physician: Salas Lr MD Diagnosis at Time of Discharge Diagnosis at Time of Discharge Cellulits of R upper Limb- POA, active- Infectious tenosynovitis Right hand, poa, active. IVDA, chronic, active- Untreated Hepatitis C- chronic, active . Daily Smoker- chronic, active- HLD- chronic, active- Procedures XRay, CTs & MRIs Date of Service: 05/21/17 CT Right Wrist with contrast- IMPRESSION: 1. Extensive subcutaneous edema compatible with cellulitis 2. Tenosynovial fluid tracking along the 1st extensor compartment of the wrist consistent with tenosynovitis and suspicious for septic tenosynovitis given clinical history. 3. No definite CT evidence of osteomyelitis. 05/21/17- X-RAY RIGHT WRIST- No fracture or subluxation. Brief History 51 yo pleasant Male h/o of IVDA, untreated Hep C, daily smoker, hx of back pain presented to [facility] with complaint of right wrist pain and swelling for the last 3 days. Patient says that pain in the right thumb has especially increased and he is noticing overall increased erythema. Denies any fever. Patient says that he does inject IV heroin at the right wrist and last injected at the right wrist 3 days ago. Uses IV drugs daily. Says initially started as a small lump and swelling progressed from there. Denies any fever or chills. Patient had a similar admission last year involving the left hand. Had been seen by or thought that time was treated with IV antibiotics nonsurgically. Patient denies any other history of admissions for infection. Denies any known history of MRSA. Patient does not regularly follow up with her primary care physician. Says that he stopped following up and taking his cholesterol medications after his left him in 2014. Hospital Course Cellulits of R upper Limb- POA, active- Infectious tenosynovitis Right hand, poa, active. IVDA, chronic, active- Untreated Hepatitis C- chronic, active . Daily Smoker- chronic, active- HLD- chronic, active- 51 yo pleasant Male h/o of IVDA, untreated Hep C, daily smoker, hx of back pain presented to [facility] with complaint of right wrist pain and swelling for the last 3 days. admitted for Cellulitis of right upper limb and to monitor for compartment syndrome. Cellulits of R upper Limb with suspicion for septic tenosynovitis, POA, active - At site of IVDA injection. On exam, +swelling, erythem, no abscess appreciated. No evidence of compartment syndrome. 05/21/17- X-RAY RIGHT WRIST- No fracture or subluxation. Will get CT hand to evaluate for involvement of deep tissue. 05/21/17 - CT Right Wrist- + [id number] extensor compartment of the wrist consistent with tenosynovitis and suspicious for septic tenosynovitis. No definite CT evidence of osteomyelitis. Started IV Abx Vancomycin and Ceftriaxone on 05/21. Blood Cx sent. MRSA screen pending. Pain- receiving Oxycodone, Diluadid prn. Ortho Surgery- Dr. Silva consulted. No Surgery needed, cleared for discharge on PO abx. Continue Amoxicillin 500 mg BID for 10 days Septic tenosynovitis- POA, active- Plan as above. Deemed non-surgical treatment. Improved pain/swelling on day of discharge. Ortho Surgery- Dr. Silva consulted. No Surgery needed, cleared for discharge on PO abx. Continue Amoxicillin 500 mg BID for 10 days IVDA, chronic, active- Pt daily heroin user. Monitor for WD symptoms Pain- receiving Oxycodone, Diluadid prn. Social work consult for substance abuse. Pt stated clearly that he is not interested in cessation at this time. Pt wanted to sign out AMA multiple times, was convinced to stay to get further CT and Sugery clearance. On morning of discharge patient rushed out of hospital once dicharge orders placed and prescription sent to pharmacy. Pt educated to fill prescription today and not wait. Given dose of Ceftriaxone and Amoxicillin this morning before discharge. HLD- chronic, active- Pt does not want to resume statin. Untreated Hepatitis C- chronic, active - Liver enzymes within normal limits. Hepatitis panel ordered. - Will attempt to arrange follow up care with new PCP to follow up on this and evaluate for treatment. Daily Smoker- chronic, active- cessation advised. Nicotine patch. Code- Full Acetaminophen for mild pain when necessary. Bowel regimen Senna and MiraLAX scheduled and PRN. Zofran when necessary for nausea and vomiting. Dispo- pt cleared by Orthopedic Surgery on 05/22 to discharge home on antibiotics. Pt wanted to sign out AMA multiple times, was convinced to stay to get further CT and Sugery clearance. On morning of discharge patient rushed out of hospital once dicharge orders placed and prescription sent to pharmacy. Pt educated to fill prescription today and not wait. Given dose of Ceftriaxone and Amoxicillin this morning before discharge. Update to antibiotic plan, patient said had difficulty paying for medication. Patient was in hurry and left quickly this morning. I changed his Augmentin to Amoxicillin and verbally phoned this change to his pharmacy at [facility]. This will be Amoxicillin 500mg twice a day for 10 days. Cost of full 10 days is $10. He received a dose of Ceftriaxone and Augmentin 875mg po this AM. Attempted to contact patient to update but did not answer. Exam Vital Signs (Last) Date Time Temp Pulse Resp B/P Pulse Ox O2 Delivery O2 Flow Rate FiO2 05/22/17 09:25 76 05/22/17 09:24 36.8 17 142/90 100 Room Air 05/21/17 16:31 2.00 Test 05/21/17 08:40 05/21/17 18:30 05/22/17 09:00 Erythrocyte Sedimentation Rate 16mm/hr (0-30) Hold [place] Top Tube Received (Received) Urine Color Straw (YELLOW) Urine Appearance Clear (CLEAR,HAZY) Urine pH 5.5 (5.0-8.0) Urine Specific [place] 1.015 (1.003-1.035) Urine Protein Negativemg/dL (NEG,TRACE) Urine Glucose (UA) Negativemg/dL (NEGATIVE) Urine Ketones Negativemg/dL (NEGATIVE) Urine Occult Blood Negative (NEGATIVE) Urine Nitrite Negative (NEGATIVE) Urine Bilirubin Negative (NEGATIVE) Urine Urobilinogen Normalmg/dL (NORMAL) Urine Leukocyte Esterase Negative (NEGATIVE) Urine RBC 0-2/hpf (0-2) Urine WBC 0-5/hpf (0-5) Urine Epithelial Cells None/hpf (NONE-MOD) Urine Crystals None seen (NONE SEEN) Urine Bacteria None/hpf (NONE-FEW) Urine Hyaline Casts None/lpf (NONE) Urine Granular Casts None seen (NONE SEEN) Urine Waxy Casts None seen (NONE SEEN) Urine Red Blood Cell Casts None seen (NONE SEEN) Urine White Blood Cell Casts None seen (NONE SEEN) Urine Mucus None seen (None Seen) Urine Trichomonas None seen (NONE SEEN) Urine Yeast None (NONE SEEN) Urinalysis Comment None Urine Culture Reflexed Not indicated White Blood Count 7.1th/mm3 (3.8-10.1) Red Blood Count 4.10mil/mm3 (4.40-5.80) Hemoglobin 12.5g/dL (13.8-17.2) Hematocrit 37.4% (41.0-50.0) Mean Corpuscular Volume 91.2fL (81-100) Mean Corpuscular Hemoglobin 30.5pg (27.0-35.0) Mean Corpuscular Hemoglobin Concent 33.4% (32.0-37.0) Red Cell Distribution Width 13.6% (12.3-15.4) Platelet Count 222bil/L (150-400) Neutrophils (%) (Auto) 60.8% (40-74) Lymphocytes (%) (Auto) 28.9% (14-46) Monocytes (%) (Auto) 8.4% (4-12) Eosinophils (%) (Auto) 1.4% (0-5) Basophils (%) (Auto) 0.1% (0-3) Prothrombin Time 9.5sec (8.1-12.5) Prothromb Time International Ratio 0.89ratio Sodium Level 143mEq/L (134-144) Potassium Level 4.7mEq/L (3.5-5.2) Chloride Level 105mEq/L (97-108) Carbon Dioxide Level 23mmol/L (18-29) Blood Urea Nitrogen 14mg/dL (6-24) Creatinine 0.62mg/dL (0.76-1.27) Estimat Glomerular Filtration Rate 144mL/min (>59) Glucose Level 105mg/dL (60-99) Calcium Level 8.9mg/dL (8.5-10.1) Total Bilirubin 0.2mg/dL (0.0-1.2) Aspartate Amino Transf (AST/SGOT) 19U/L (0-50) Alanine Aminotransferase (ALT/SGPT) 13U/L (0-44) Alkaline Phosphatase 85U/L (25-150) Total Protein 6.4g/dL (6.4-8.4) Albumin 3.7g/dL (3.4-5.0) Hepatitis C Comment . Discharge Medications Discharge Medications Amoxicillin (Amoxicillin) 500 Mg Capsule 500 MG PO BID Prescribed by: SALAS LR MD Additional med instructions Please take antibiotics for next 14 days. Followup Plan Follow-up plan Follow up with your doctor in 1 week to ensure continued improvement of Right hand cellulitis. Discharge Diet: No restrictions Discharge Activity: Limited until seen by PCP Follow-up Provider: Khris Hussein MD Follow-up with PCP in: 1 week Time spent Greater than 30 minutes was spent in preparation of discharge with greater than 50% of that time dedicated to patient counseling and coordination of care. Salas Lr MD May 22, 2017 13:27
[2017-05-29 10:07] LABS: Hepatitis A Antibody IgM Negative (Negative); Hepatitis B Core Antibody IgM Negative (Negative)
== END 2017-05-22 10:48 | disposition home or self-care (01) ==
LOC: SED 06:44 → INTOOBSV 09:22 → OSC 09:22
PROVIDERS: ADMIT Internal Medicine; ATTEND Internal Medicine
DX: L03.113 Cellulitis of right upper limb (principal); M65.141 Other infective (teno)synovitis, right hand; B19.20 Unspecified viral hepatitis C without hepatic coma; M54.9 Dorsalgia, unspecified; F14.10 Cocaine abuse, uncomplicated; F17.210 Nicotine dependence, cigarettes, uncomplicated; E78.5 Hyperlipidemia, unspecified
CPT/HCPCS: 36415; 73110; 73201; 80053; 81000; 85025; 85610; 85651; 86705; 86709; 87040; 87340; 87341; 87641; 96365; 96366; 96367; 96372; 96375; 96376; 99285; G0378; G0472; J0696; J1170; J1644; J3370; J3490; J7030; Q9967